=== PATIENT | male | born 1970 | race Caucasian/White ===

== ENCOUNTER 2017-02-25 18:44 | Emergency (ER) | payer OTHER ==
[~2017-02-25] VITALS: Ht 172.7 cm; Wt 105.0 kg
[~2017-02-25 18:44] MED LIST: CLX20 PO; MULT-662 PO; ONDA4TAB7 SL
[2017-02-25 18:49] VITALS: TEMP 37.2; Ht 172.7 cm; Wt 105.0 kg
[2017-02-25] MEDS ORDERED: MULT-220 PO (19:03)
[2017-02-25] MEDS ORDERED: CLX/20 PO (19:03)
[2017-02-25] MEDS ORDERED: BACITRACIN OINT 15 GM TUBE EXT ONE (19:15)
[2017-02-25] MEDS ORDERED: BCTROWC EXT (19:35)
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
[2017-02-25 20:07] VITALS: BP 148/81; PULSE 82; O2SAT 98
== END 2017-02-25 20:09 | disposition home or self-care (01) ==
LOC: C.EDB 18:45 → C.EDD 20:09
DX: T22.00XA Burn of unspecified degree of shoulder and upper limb, except wrist and hand, unspecified site, initial encounter (principal); T31.0 Burns involving less than 10% of body surface; X08.8XXA Exposure to other specified smoke, fire and flames, initial encounter; F41.8 Other specified anxiety disorders; Z79.899 Other long term (current) drug therapy; Z98.890 Other specified postprocedural states; Z88.0 Allergy status to penicillin

== ENCOUNTER 2017-06-02 19:17 | Emergency (ER) | payer SELFPAY ==
[~2017-06-02] VITALS: Ht 172.7 cm; Wt 102.3 kg
[~2017-06-02 19:17] MED LIST changes: +CLX/20 PO; -CLX20 PO; +MULT-220 PO; -MULT-662 PO; -ONDA4TAB7 SL
[2017-06-02 19:22] VITALS: TEMP 37.2; Ht 172.7 cm; Wt 102.3 kg
[2017-06-02] MEDS ORDERED: ONDANSETRON INJ 2 MG/ML 2 ML VIAL IV STA (19:59)
[2017-06-02] MEDS ORDERED: MoRPHine SULFATE 10 MG/ML CARP/VIAL IV STA (19:59)
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
[2017-06-02] MEDS ORDERED: HYDROmorphone INJ 1 MG/ML SYR IV STA (22:19)
[2017-06-02] MEDS ORDERED: OXYC1TAB3 PO (22:23)
[2017-06-02 22:34] VITALS: BP 121/75; PULSE 92; O2SAT 97
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
== END 2017-06-02 22:41 | disposition home or self-care (01) ==
LOC: C.EDB 19:18
DX: S70.01XA Contusion of right hip, initial encounter (principal); S70.11XA Contusion of right thigh, initial encounter; S20.211A Contusion of right front wall of thorax, initial encounter; V86.59XA Driver of other special all-terrain or other off-road motor vehicle injured in nontraffic accident, initial encounter; Z98.890 Other specified postprocedural states

== ENCOUNTER 2020-08-16 19:41 | Inpatient (IN) ==
[2020-08-16] MEDS ORDERED: ACETAMINOPHEN 325 MG TAB PO STA (20:35)
[2020-08-16] MEDS ORDERED: ACETAMINOPHEN 325 MG TAB ONE (20:37)
[2020-08-16 20:39] LABS: Basophils # (auto) 0.02 K/uL (0-0.2); Basophils % (auto) 0.2 %; Eosinophils # (auto) 0.01 K/uL (0-0.5); Eosinophils % (auto) 0.1 %; Hematocrit (blood only) 39.6 % (42-52); Hemoglobin 14.2 g/dL (14.0-18.0); Immature Granulocytes # (auto) 0.06 K/uL (0.00-0.02); Immature Granulocytes % (auto) 0.7 %; Lymphocytes # (auto) 0.88 K/uL (1.2-3.4); Lymphocytes % (auto) 10.9 %; Mean Corpuscular Hemoglobin 31.1 pg (25-34); Mean Corpuscular Hgb Conc 35.9 g/dL (32-36); Mean Corpuscular Volume 86.8 fL (80-100); Mean Platelet Volume 9.4 fL (7.4-10.4); Monocytes # (auto) 0.54 K/uL (0.11-0.59); Monocytes % (auto) 6.7 %; Neutrophils # (auto) 6.55 K/uL (1.4-6.5); Neutrophils % (auto) 81.4 %; Platelet Count 149 K/uL (130-400); RDW Coefficient of Variation 13.2 % (11.5-14.5); RDW Standard Deviation 42.1 fL (36.4-46.3); Red Blood Count 4.56 M/uL (4.7-6.1); White Blood Count 8.06 K/uL (4.8-10.8)
--- NOTE | 2020-08-16 20:53 | XRay Report ---
XR chest 1V portable CLINICAL HISTORY: Fever COMPARISON STUDY: 03/12/2019 FINDINGS: The heart is normal in size. There is mild mediastinal prominence. Mild adenopathy cannot b e excluded. There is mild elevation of interstitium. Diagnostic considerations include a mild pulmona ry vascular congestion versus interstitial inflammatory process. Conical and radiographic follow-up i s recommended. There are no large pleural effusions[ IMPRESSION: 1. Mild elevation of interstitium. Likely diagnostic considerations include mild pulmonary vascular c ongestion versus interstitial infectious/inflammatory process. Clinical and radiographic follow-up is recommended 2. Mild mediastinal prominence. Mild adenopathy cannot be excluded. ACT 112: Negative or not required by law. Electronically signed by: Harjit Morrell M.D. 08/16/2020 8:52 PM
[2020-08-16 20:59] LABS: Albumin Level 3.3 gm/dl (3.4-5.0); Calcium 8.6 mg/dl (8.5-10.1); Creatinine Clr Calc Pharmacy 89.8 ml/min; Est GFR (African American) 77.5; Est GFR (Non-African American) 66.9; Potassium 3.6 mmol/L (3.5-5.1)
[2020-08-16 21:02] LABS: Albumin Globulin Ratio 0.8 (0.9-2); Bilirubin,Total 0.9 mg/dl (0.2-1); Globulin 4.3 gm/dl (2.5-4.0); Total Protein 7.6 gm/dl (6.4-8.2)
[2020-08-16] MEDS ORDERED: ALBUT/IPRATROP 3MG/0.5MG NEB 3 ML VIAL NEB STA (21:45)
[2020-08-16] MEDS ORDERED: KETOROLAC 30 MG/ML VIAL IV STA (21:45)
[2020-08-16] MEDS ORDERED: SODIUM CHLORIDE 0.9% 1000ML 1,000 ML IV SCH ×2 (21:45→23:45)
--- NOTE | 2020-08-16 21:52 | Emergency Department Note ---
History of Present Illness General Chief complaint: Fever Stated complaint: fever of 106, dr ricky Time Seen by Provider: 08/16/20 21:27 History of Present Illness Maximum Pain Intensity: 9 This is a 50-year-old male presenting to the emergency department for evaluation of fever and flulike symptoms for the past week. 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 He states that he has had a fever as high as 106 F at home, and contacted his primary care physician, who referred him to the ER. The patient does feel chest tightness and difficulty breathing. He does not smoke and does not have a known history of cardiopulmonary disease. The patient did take Motrin greater than 12 hours ago, and Tylenol about 8 hours ago. He does take blood pressure medication and Celexa, but considers himself usually healthy. He rates his overall discomfort a 9/10. He is diaphoretic and feels quite unwell. Home Medications Medication Instructions Recorded Confirmed Type citalopram [Celexa] 20 mg PO QAM 03/12/19 08/16/20 History acetaminophen [Tylenol Extra 1,000 mg PO Q6H PRN 08/16/20 08/16/20 History Strength] ibuprofen 200 mg PO Q6H PRN 08/16/20 08/16/20 History losartan 50 mg PO QAM 08/16/20 08/16/20 History sulfamethoxazole-trimethoprim 1 tab PO Q12H 08/16/20 08/16/20 History [Bactrim DS] Allergies Allergy/AdvReac Type Severity Reaction Status Date / Time lisinopril Allergy Severe "nonstop" Unverified 08/16/20 21:23 coughing Penicillins Allergy Intermediate hives Verified 08/16/20 21:16 Past Med/Surg History Medical History (Updated 08/17/20 @ 22:51 by Jay Jay Varner PA-C) Hypertension Surgical History (Updated 08/16/20 @ 21:50 by Jay Jay Varner PA-C) No significant past surgical history Family History Other No significant family history Social History Smoking Status: Never smoker Second Hand Exposure: No; Do You Dip or Chew Tobacco: Yes; Hx Alcohol Use: No Hx Substance Use: No Preferred Language: Macanese Communication Ability: Effective Waste Treatment Operator Required: No Beliefs That Will Affect Care: None Current Living Situation: Family Other Information That Helps Us Care for You: No Feels Safe at Home: Yes Safety Concerns: Feels Safe At This Time Assistive Devices: None Review of Systems A total of 10 systems reviewed and were otherwise negative Physical Exam Vital Signs Vital Signs - 24 hr 08/16/20 23:00 08/16/20 23:01 08/16/20 23:09 Temperature 37.1 C Temperature Source Oral Pulse Rate 108 H 102 H Pulse Rate [Apical] 103 H Pulse Rate from SpO2 Sensor 101 H 103 H Respiratory Rate 19 23 20 Respiratory Effort / Characteristics Non-Labored Spontaneous Respiratory Depth Normal Blood Pressure 133/79 Blood Pressure [Left Arm] 133/79 Blood Pressure Mean 103 Blood Pressure Mean [Left Arm] 97 Pulse Oximetry 94 94 96 Oxygen Delivery Method Room Air Room Air Room Air 08/16/20 23:15 08/16/20 23:30 08/16/20 23:31 Temperature Temperature Source Pulse Rate 105 H 101 H Pulse Rate [Apical] 101 H Pulse Rate from SpO2 Sensor 103 H 102 H Respiratory Rate 18 15 14 Respiratory Effort / Characteristics Non-Labored Spontaneous Respiratory Depth Blood Pressure 133/78 Blood Pressure [Left Arm] Blood Pressure Mean 106 Blood Pressure Mean [Left Arm] Pulse Oximetry 99 94 94 Oxygen Delivery Method Room Air Room Air Room Air 08/17/20 00:00 08/17/20 00:01 08/17/20 00:19 Temperature Temperature Source Pulse Rate 102 H 99 H 84 Pulse Rate [Apical] Pulse Rate from SpO2 Sensor 102 H 100 H 84 Respiratory Rate 21 16 22 Respiratory Effort / Characteristics Respiratory Depth Blood Pressure 114/72 145/104 H Blood Pressure [Left Arm] Blood Pressure Mean 81 119 Blood Pressure Mean [Left Arm] Pulse Oximetry 93 94 98 Oxygen Delivery Method Room Air Room Air Room Air 08/17/20 00:30 08/17/20 00:31 08/17/20 00:50 Temperature Temperature Source Pulse Rate 101 H 115 H 81 Pulse Rate [Apical] Pulse Rate from SpO2 Sensor 101 H 101 H 81 Respiratory Rate 18 21 14 Respiratory Effort / Characteristics Respiratory Depth Blood Pressure 107/76 156/100 H Blood Pressure [Left Arm] Blood Pressure Mean 80 111 Blood Pressure Mean [Left Arm] Pulse Oximetry 97 97 95 Oxygen Delivery Method Room Air Room Air Room Air 08/17/20 01:00 08/17/20 01:01 08/17/20 01:30 Temperature Temperature Source Pulse Rate 91 H 83 100 H Pulse Rate [Apical] Pulse Rate from SpO2 Sensor 93 H 84 100 H Respiratory Rate 20 17 15 Respiratory Effort / Characteristics Respiratory Depth Blood Pressure 154/101 H 109/80 Blood Pressure [Left Arm] Blood Pressure Mean 105 82 Blood Pressure Mean [Left Arm] Pulse Oximetry 97 97 97 Oxygen Delivery Method Room Air Room Air Room Air 08/17/20 01:31 08/17/20 02:09 08/17/20 02:30 Temperature Temperature Source Pulse Rate 100 H 114 H 111 H Pulse Rate [Apical] Pulse Rate from SpO2 Sensor 100 H 115 H Respiratory Rate 21 24 24 Respiratory Effort / Characteristics Respiratory Depth Blood Pressure 154/84 H Blood Pressure [Left Arm] Blood Pressure Mean 98 Blood Pressure Mean [Left Arm] Pulse Oximetry 97 92 93 Oxygen Delivery Method Room Air Room Air Room Air VITALS: Vitals are noted on the nurse's note and reviewed by myself. Vital signs with Fever, tachycardia, and tachypnea GENERAL: Mildly ill-appearing white male who is seated in a well lit ER room answering questions appropriately HEAD: Normocephalic atraumatic. EARS: External ear normal. External auditory canals clear, tympanic membranes pearly [place]udson without erythema or effusion bilaterally. EYES: Pupils equal round and reactive to light and accommodation. Conjunctivae without injection, sclerae without icterus. Extraocular movements intact. NOSE: Patent, turbinates without inflammation or discharge. MOUTH: Mucous membranes moist. Tonsils are not enlarged. Pharynx without erythema, blood, or exudate. Uvula midline. Airway patent. NECK: Supple without nuchal rigidity. No lymphadenopathy. No thyromegaly. Cervical spine is nontender. No meningismus HEART: Regular rate and rhythm without murmurs gallops or rubs. LUNGS: Clear to auscultation bilaterally without wheezes, rales or rhonchi. No retractions or accessory muscle use. ABDOMEN: Positive normal bowel sounds x 4. Soft, nontender, without masses or organomegaly. No guarding or rebound tenderness. MUSCULOSKELETAL: No muscle atrophy, erythema, or edema noted. Full range of motion in all extremities. NEURO: Patient was alert and oriented to person place and time. CN II through XI I grossly intact. Course Administered Medications Citalopram Hydrobromide (Citalopram 20 Mg Tab) 20 mg PO QAM [facility] Stop: 09/16/20 08:59 Last Admin: 08/17/20 08:44 Dose: 20 mg Documented by: [id number] Enoxaparin Sodium (Enoxaparin Inj 40 Mg/0.4 Ml Syr) 40 mg SQ QAM [facility] Stop: 09/16/20 08:59 Last Admin: 08/17/20 08:44 Dose: 40 mg Documented by: [id number] Meropenem 2,000 mg/ Sodium (Chloride) 100 mls @ 200 mls/hr IV Q8H [facility]; Protocol Stop: 08/27/20 08:59 Last Infusion: 08/17/20 17:29 Dose: 0 mls/hr Documented by: [id number] Infusion: 08/17/20 17:17 Dose: 200 mls/hr Documented by: [id number] Infusion: 08/17/20 16:45 Dose: 0 mls/hr Documented by: [id number] Admin: 08/17/20 16:27 Dose: 200 mls/hr Documented by: [id number] Infusion: 08/17/20 11:13 Dose: 0 mls/hr Documented by: [id number] Admin: 08/17/20 10:27 Dose: 200 mls/hr Documented by: [id number] Potassium Chloride 40 meq/ (Sodium Chloride) 1,020 mls @ 75 mls/hr IV .[id number] ONE Stop: 08/17/20 23:20 Last Admin: 08/17/20 10:27 Dose: 75 mls/hr Documented by: [id number] Vancomycin HCl 1,250 mg/ (Sodium Chloride) 275 mls @ 200 mls/hr IV Q12H [facility] Stop: 08/27/20 17:59 Last Infusion: 08/17/20 19:04 Dose: 0 mls/hr Documented by: [id number] Admin: 08/17/20 17:41 Dose: 200 mls/hr Documented by: [id number] Insulin Aspart (Insulin Aspart 100 Units/Ml 3 Ml Pen) 0 units SC ACHS [facility] Stop: 09/16/20 08:29 Last Admin: 08/17/20 20:59 Dose: 11 units Documented by: [id number] Cosigned by: [id number] Admin: 08/17/20 16:51 Dose: 22 units Documented by: [id number] Cosigned by: [id number] Admin: 08/17/20 12:30 Dose: 24 units Documented by: [id number] Cosigned by: [id number] Admin: 08/17/20 08:43 Dose: 9 units Documented by: [id number] Cosigned by: [id number] Losartan Potassium (Losartan Potassium 50 Mg Tab) 50 mg PO QAM [facility] Stop: 09/16/20 08:59 Last Admin: 08/17/20 08:44 Dose: 50 mg Documented by: [id number] Discontinued Medications Acetaminophen (Acetaminophen 325 Mg Tab) 650 mg PO NOW STA Stop: 08/16/20 20:36 Last Admin: 08/16/20 20:41 Dose: 650 mg Documented by: [id number] Acetaminophen (Acetaminophen 325 Mg Tab) Confirm Administered Dose 650 mg .ROUTE .STK-MED ONE Stop: 08/16/20 20:38 Last Admin: 08/16/20 20:41 Dose: Not Given Documented by: [id number] Acetaminophen (Acetaminophen 325 Mg Tab) Confirm Administered Dose 650 mg .ROUTE .STK-MED ONE Stop: 08/17/20 03:47 Last Admin: 08/17/20 03:48 Dose: 650 mg Documented by: [id number] Albuterol (Albut/Ipratrop 3mg/0.5mg Neb 3 Ml Vial) 3 ml NEB NOW STA Stop: 08/16/20 21:46 Last Admin: 08/16/20 23:15 Dose: 3 ml Documented by: [id number] Clonidine HCl (Clonidine Hcl 0.1 Mg Tab) 0.1 mg PO NOW ONE Stop: 08/17/20 02:54 Last Admin: 08/17/20 03:25 Dose: 0.1 mg Documented by: [id number] Dexamethasone (Dexamethasone Sod Inj 10 Mg/Ml Vial) 10 mg IV NOW STA Stop: 08/17/20 02:55 Last Admin: 08/17/20 03:25 Dose: 10 mg Documented by: [id number] Sodium Chloride (Nss 1000ml) 1,000 mls @ 999 mls/hr IV .Q1H1M [facility] Stop: 08/16/20 22:45 Last Infusion: 08/16/20 22:13 Dose: 0 mls/hr Documented by: [id number] Admin: 08/16/20 21:10 Dose: 999 mls/hr Documented by: [id number] Sodium Chloride (Nss 1000ml) 1,000 mls @ 999 mls/hr IV .Q1H1M [facility] Stop: 08/17/20 00:45 Last Infusion: 08/17/20 01:47 Dose: 0 mls/hr Documented by: [id number] Admin: 08/16/20 23:49 Dose: 999 mls/hr Documented by: [id number] Lactated Ringer's (Lr) 1,000 mls @ 60 mls/hr IV .[id number] ONE Stop: 08/17/20 17:54 Last Admin: 08/17/20 08:31 Dose: Not Given Documented by: [id number] Lactated Ringer's (Lr) 1,000 mls @ 75 mls/hr IV .[id number] ONE Stop: 08/17/20 15:01 Last Admin: 08/17/20 03:30 Dose: Not Given Documented by: [id number] Vancomycin HCl 2,750 mg/ (Sodium Chloride) 555 mls @ 200 mls/hr IV NOW STA Stop: 08/17/20 05:27 Last Infusion: 08/17/20 07:06 Dose: 0 mls/hr Documented by: [id number] Admin: 08/17/20 04:03 Dose: 200 mls/hr Documented by: [id number] Dexamethasone 10 mg/ Syringe 2.5 mls @ 1 mls/min IV Q6H [facility] Stop: 09/16/20 09:59 Last Admin: 08/17/20 16:19 Dose: 1 mls/min Documented by: [id number] Admin: 08/17/20 10:27 Dose: 1 mls/min Documented by: [id number] Ceftriaxone Sodium (Rocephin) 2,000 mg in 70 mls @ 140 mls/hr IV NOW STA Stop: 08/17/20 03:10 Last Infusion: 08/17/20 04:04 Dose: 0 mls/hr Documented by: [id number] Admin: 08/17/20 03:32 Dose: 140 mls/hr Documented by: [id number] Lactated Ringer's (Lr) 1,000 mls @ 500 mls/hr IV .Q2H ONE Stop: 08/17/20 06:45 Last Infusion: 08/17/20 05:40 Dose: 0 mls/hr Documented by: [id number] Admin: 08/17/20 04:46 Dose: 500 mls/hr Documented by: [id number] Magnesium Sulfate/Dextrose (Magnesium Sulfate / D5w) 1 gm in 100 mls @ 50 mls/hr IV NOW STA Stop: 08/17/20 06:57 Last Infusion: 08/17/20 08:32 Dose: 0 mls/hr Documented by: [id number] Admin: 08/17/20 05:37 Dose: 50 mls/hr Documented by: [id number] Insulin Aspart (Insulin Aspart 100 Units/Ml 3 Ml Pen) 11 units SC NOW ONE; Protocol Stop: 08/17/20 14:16 Last Admin: 08/17/20 14:18 Dose: 11 units Documented by: [id number] Cosigned by: [id number] Insulin Glargine (Insulin Glargine Solostar 100 Units/Ml 3 Ml Pen) 45 units SC NOW STA Stop: 08/17/20 09:40 Last Admin: 08/17/20 10:28 Dose: 45 units Documented by: [id number] Cosigned by: [id number] Ioversol (Optiray 320 125ml) 125 ml IV ONCE ONE Stop: 08/16/20 22:55 Last Admin: 08/16/20 22:54 Dose: 101 ml Documented by: [id number] Ioversol (Optiray 320 125ml) 125 ml IV ONCE ONE Stop: 08/17/20 02:27 Last Admin: 08/17/20 02:27 Dose: 118 ml Documented by: [id number] Ketorolac Tromethamine (Ketorolac 30 Mg/Ml Vial) 30 mg IV NOW STA Stop: 08/16/20 21:46 Last Admin: 08/16/20 22:09 Dose: 30 mg Documented by: [id number] Ketorolac Tromethamine (Ketorolac Tromethamine 15 Mg/Ml Vial) 15 mg IV NOW STA Stop: 08/17/20 00:58 Last Admin: 08/17/20 02:37 Dose: Not Given Documented by: [id number] Ketorolac Tromethamine (Ketorolac Tromethamine 15 Mg/Ml Vial) 15 mg IV NOW STA Stop: 08/17/20 01:44 Last Admin: 08/17/20 03:09 Dose: 15 mg Documented by: [id number] Metoprolol Tartrate (Metoprolol Tartrate 1 Mg/Ml Vial) Confirm Administered Dose 5 mg IV .STK-MED ONE Stop: 08/17/20 04:45 Last Increment: 08/17/20 04:46 Dose: 2.5 mg Documented by: [id number] Oxycodone HCl (Oxycodone Hcl Ir 5 Mg Tab (Immediate Release)) 5 mg PO NOW STA Stop: 08/17/20 01:06 Last Admin: 08/17/20 01:45 Dose: 5 mg Documented by: [id number] Potassium Chloride (Potassium Chloride Crtab 20 Meq Tabcr) 40 meq PO NOW STA Stop: 08/17/20 04:49 Last Admin: 08/17/20 06:31 Dose: 40 meq Documented by: [id number] Medical Decision Making Differential Diagnosis Differential diagnosis: Etiologies such as viral syndrome, otitis, pharyngitis, pneumonia, influenza, meningitis, urinary tract infection, septic arthritis, soft tissue infectious process, intra-abdominal process, sepsis, bacteremia, as well as others were entertained. Laboratory Data Result diagrams: 08/16/20 20:20 08/17/20 14:13 Lab Results 08/16/20 08/16/20 08/16/20 Range/Units 20:20 20:20 20:20 WBC 8.06 (4.8-10.8) K/uL RBC 4.56 L (4.7-6.1) M/uL Hgb 14.2 (14.0-18.0) g/dL Hct 39.6 L (42-52) % MCV 86.8 (80-100) fL MCH 31.1 (25-34) pg MCHC 35.9 (32-36) g/dL RDW Std Deviation 42.1 (36.4-46.3) fL RDW Coeff of Tata 13.2 (11.5-14.5) % Plt Count 149 (130-400) K/uL MPV 9.4 (7.4-10.4) fL Immature Gran % (Auto) 0.7 % Neut % (Auto) 81.4 % Lymph % (Auto) 10.9 % [place] % (Auto) 6.7 % Eos % (Auto) 0.1 % Baso % (Auto) 0.2 % Neut # (Auto) 6.55 H (1.4-6.5) K/uL Lymph # (Auto) 0.88 L (1.2-3.4) K/uL [place] # (Auto) 0.54 (0.11-0.59) K/uL Eos # (Auto) 0.01 (0-0.5) K/uL Baso # (Auto) 0.02 (0-0.2) K/uL Immature Gran # (Auto) 0.06 H (0.00-0.02) K/uL ESR 35 H (0-14) mm/hr PT (9.0-12.0) Seconds INR (0.9-1.1) APTT (21.0-31.0) Seconds PTT Ratio Sodium 128 L (136-145) mmol/L Potassium 3.6 (3.5-5.1) mmol/L Chloride 94 L (98-107) mmol/L Carbon Dioxide 26 (21-32) mmol/L Anion Gap 8.0 (3-11) BUN 8 (7-18) mg/dl Creatinine 1.24 (0.6-1.4) mg/dl Est Cr Clr Drug Dosing 89.8 ml/min Est GFR ( Amer) 77.5 Est GFR (Non-Af Amer) 66.9 BUN/Creatinine Ratio 6.0 L (10-20) Glucose 243 H (70-99) mg/dl Estimat Average Glucose mg/dl Hemoglobin A1c (4.5-5.6) % POC Lactic Acid Butch (0.90-1.70) mmol/L Lactate (0.4-2.0) mmol/L Calcium 8.6 (8.5-10.1) mg/dl Magnesium (1.8-2.4) mg/dl Total Bilirubin 0.9 (0.2-1) mg/dl AST 43 H (15-37) U/L ALT 78 (12-78) U/L Alkaline Phosphatase 61 (45-117) U/L Troponin I (0-0.045) ng/ml C-Reactive Protein 11.40 H (0-0.29) mg/dl Total Protein 7.6 (6.4-8.2) gm/dl Albumin 3.3 L (3.4-5.0) gm/dl Globulin 4.3 H (2.5-4.0) gm/dl Albumin/Globulin Ratio 0.8 L (0.9-2) Procalcitonin (0-0.5) ng/ml Lyme Disease IgG Ab (Negative) Lyme Disease IgM Ab (Negative) COVID-19 Eval Order SARS-CoV-2 (PCR) (Negative) Influenza Type A (PCR) (Neg) Influenza Type B (PCR) (Neg) RSV (RT-PCR) (Neg) SARS-CoV-2, RNA, NAAT (NEGATIVE) 08/16/20 08/16/20 08/16/20 Range/Units 20:20 20:20 20:20 WBC (4.8-10.8) K/uL RBC (4.7-6.1) M/uL Hgb (14.0-18.0) g/dL Hct (42-52) % MCV (80-100) fL MCH (25-34) pg MCHC (32-36) g/dL RDW Std Deviation (36.4-46.3) fL RDW Coeff of Tata (11.5-14.5) % Plt Count (130-400) K/uL MPV (7.4-10.4) fL Immature Gran % (Auto) % Neut % (Auto) % Lymph % (Auto) % [place] % (Auto) % Eos % (Auto) % Baso % (Auto) % Neut # (Auto) (1.4-6.5) K/uL Lymph # (Auto) (1.2-3.4) K/uL [place] # (Auto) (0.11-0.59) K/uL Eos # (Auto) (0-0.5) K/uL Baso # (Auto) (0-0.2) K/uL Immature Gran # (Auto) (0.00-0.02) K/uL ESR (0-14) mm/hr PT 11.2 (9.0-12.0) Seconds INR 1.1 (0.9-1.1) APTT 31.3 H (21.0-31.0) Seconds PTT Ratio 1.1 Sodium (136-145) mmol/L Potassium (3.5-5.1) mmol/L Chloride (98-107) mmol/L Carbon Dioxide (21-32) mmol/L Anion Gap (3-11) BUN (7-18) mg/dl Creatinine (0.6-1.4) mg/dl Est Cr Clr Drug Dosing ml/min Est GFR ( Amer) Est GFR (Non-Af Amer) BUN/Creatinine Ratio (10-20) Glucose (70-99) mg/dl Estimat Average Glucose mg/dl Hemoglobin A1c (4.5-5.6) % POC Lactic Acid Butch (0.90-1.70) mmol/L Lactate (0.4-2.0) mmol/L Calcium (8.5-10.1) mg/dl Magnesium (1.8-2.4) mg/dl Total Bilirubin (0.2-1) mg/dl AST (15-37) U/L ALT (12-78) U/L Alkaline Phosphatase (45-117) U/L Troponin I (0-0.045) ng/ml C-Reactive Protein (0-0.29) mg/dl Total Protein (6.4-8.2) gm/dl Albumin (3.4-5.0) gm/dl Globulin (2.5-4.0) gm/dl Albumin/Globulin Ratio (0.9-2) Procalcitonin 0.58 H (0-0.5) ng/ml Lyme Disease IgG Ab Negative (Negative) Lyme Disease IgM Ab Negative (Negative) COVID-19 Eval Order SARS-CoV-2 (PCR) (Negative) Influenza Type A (PCR) (Neg) Influenza Type B (PCR) (Neg) RSV (RT-PCR) (Neg) SARS-CoV-2, RNA, NAAT (NEGATIVE) 08/16/20 08/16/20 08/16/20 Range/Units 20:20 20:59 22:16 WBC (4.8-10.8) K/uL RBC (4.7-6.1) M/uL Hgb (14.0-18.0) g/dL Hct (42-52) % MCV (80-100) fL MCH (25-34) pg MCHC (32-36) g/dL RDW Std Deviation (36.4-46.3) fL RDW Coeff of Tata (11.5-14.5) % Plt Count (130-400) K/uL MPV (7.4-10.4) fL Immature Gran % (Auto) % Neut % (Auto) % Lymph % (Auto) % [place] % (Auto) % Eos % (Auto) % Baso % (Auto) % Neut # (Auto) (1.4-6.5) K/uL Lymph # (Auto) (1.2-3.4) K/uL [place] # (Auto) (0.11-0.59) K/uL Eos # (Auto) (0-0.5) K/uL Baso # (Auto) (0-0.2) K/uL Immature Gran # (Auto) (0.00-0.02) K/uL ESR (0-14) mm/hr PT (9.0-12.0) Seconds INR (0.9-1.1) APTT (21.0-31.0) Seconds PTT Ratio Sodium (136-145) mmol/L Potassium (3.5-5.1) mmol/L Chloride (98-107) mmol/L Carbon Dioxide (21-32) mmol/L Anion Gap (3-11) BUN (7-18) mg/dl Creatinine (0.6-1.4) mg/dl Est Cr Clr Drug Dosing ml/min Est GFR ( Amer) Est GFR (Non-Af Amer) BUN/Creatinine Ratio (10-20) Glucose (70-99) mg/dl Estimat Average Glucose 186 mg/dl Hemoglobin A1c 8.1 H (4.5-5.6) % POC Lactic Acid Butch 2.07 H (0.90-1.70) mmol/L Lactate (0.4-2.0) mmol/L Calcium (8.5-10.1) mg/dl Magnesium (1.8-2.4) mg/dl Total Bilirubin (0.2-1) mg/dl AST (15-37) U/L ALT (12-78) U/L Alkaline Phosphatase (45-117) U/L Troponin I (0-0.045) ng/ml C-Reactive Protein (0-0.29) mg/dl Total Protein (6.4-8.2) gm/dl Albumin (3.4-5.0) gm/dl Globulin (2.5-4.0) gm/dl Albumin/Globulin Ratio (0.9-2) Procalcitonin (0-0.5) ng/ml Lyme Disease IgG Ab (Negative) Lyme Disease IgM Ab (Negative) [facility] SARS-[facility]-2 (PCR) (Negative) Influenza Type A (PCR) (Neg) Influenza Type B (PCR) (Neg) RSV (RT-PCR) (Neg) SARS-CoV-2, RNA, NAAT (NEGATIVE) 08/16/20 08/16/20 08/16/20 Range/Units 22:16 22:25 23:50 WBC (4.8-10.8) K/uL RBC (4.7-6.1) M/uL Hgb (14.0-18.0) g/dL Hct (42-52) % MCV (80-100) fL MCH (25-34) pg MCHC (32-36) g/dL RDW Std Deviation (36.4-46.3) fL RDW Coeff of Tata (11.5-14.5) % Plt Count (130-400) K/uL MPV (7.4-10.4) fL Immature Gran % (Auto) % Neut % (Auto) % Lymph % (Auto) % [place] % (Auto) % Eos % (Auto) % Baso % (Auto) % Neut # (Auto) (1.4-6.5) K/uL Lymph # (Auto) (1.2-3.4) K/uL [place] # (Auto) (0.11-0.59) K/uL Eos # (Auto) (0-0.5) K/uL Baso # (Auto) (0-0.2) K/uL Immature Gran # (Auto) (0.00-0.02) K/uL ESR (0-14) mm/hr PT (9.0-12.0) Seconds INR (0.9-1.1) APTT (21.0-31.0) Seconds PTT Ratio Sodium (136-145) mmol/L Potassium (3.5-5.1) mmol/L Chloride (98-107) mmol/L Carbon Dioxide (21-32) mmol/L Anion Gap (3-11) BUN (7-18) mg/dl Creatinine (0.6-1.4) mg/dl Est Cr Clr Drug Dosing ml/min Est GFR ( Amer) Est GFR (Non-Af Amer) BUN/Creatinine Ratio (10-20) Glucose (70-99) mg/dl Estimat Average Glucose mg/dl Hemoglobin A1c (4.5-5.6) % POC Lactic Acid Butch (0.90-1.70) mmol/L Lactate (0.4-2.0) mmol/L Calcium (8.5-10.1) mg/dl Magnesium (1.8-2.4) mg/dl Total Bilirubin (0.2-1) mg/dl AST (15-37) U/L ALT (12-78) U/L Alkaline Phosphatase (45-117) U/L Troponin I 0.063 H* (0-0.045) ng/ml C-Reactive Protein (0-0.29) mg/dl Total Protein (6.4-8.2) gm/dl Albumin (3.4-5.0) gm/dl Globulin (2.5-4.0) gm/dl Albumin/Globulin Ratio (0.9-2) Procalcitonin (0-0.5) ng/ml Lyme Disease IgG Ab (Negative) Lyme Disease IgM Ab (Negative) COVID-[address] [facility]Rsv at [facility] SARS-CoV-2 (PCR) (Negative) Influenza Type A (PCR) (Neg) Influenza Type B (PCR) (Neg) RSV (RT-PCR) (Neg) SARS-CoV-2, RNA, NAAT NEGATIVE (NEGATIVE) 08/16/20 08/17/20 08/17/20 Range/Units 23:50 01:04 01:04 WBC (4.8-10.8) K/uL RBC (4.7-6.1) M/uL Hgb (14.0-18.0) g/dL Hct (42-52) % MCV (80-100) fL MCH (25-34) pg MCHC (32-36) g/dL RDW Std Deviation (36.4-46.3) fL RDW Coeff of Tata (11.5-14.5) % Plt Count (130-400) K/uL MPV (7.4-10.4) fL Immature Gran % (Auto) % Neut % (Auto) % Lymph % (Auto) % [place] % (Auto) % Eos % (Auto) % Baso % (Auto) % Neut # (Auto) (1.4-6.5) K/uL Lymph # (Auto) (1.2-3.4) K/uL [place] # (Auto) (0.11-0.59) K/uL Eos # (Auto) (0-0.5) K/uL Baso # (Auto) (0-0.2) K/uL Immature Gran # (Auto) (0.00-0.02) K/uL ESR (0-14) mm/hr PT (9.0-12.0) Seconds INR (0.9-1.1) APTT (21.0-31.0) Seconds PTT Ratio Sodium 132 L (136-145) mmol/L Potassium (3.5-5.1) mmol/L Chloride (98-107) mmol/L Carbon Dioxide (21-32) mmol/L Anion Gap (3-11) BUN (7-18) mg/dl Creatinine (0.6-1.4) mg/dl Est Cr Clr Drug Dosing ml/min Est GFR ( Amer) Est GFR (Non-Af Amer) BUN/Creatinine Ratio (10-20) Glucose (70-99) mg/dl Estimat Average Glucose mg/dl Hemoglobin A1c (4.5-5.6) % POC Lactic Acid Butch (0.90-1.70) mmol/L Lactate 1.5 (0.4-2.0) mmol/L Calcium (8.5-10.1) mg/dl Magnesium 1.8 (1.8-2.4) mg/dl Total Bilirubin (0.2-1) mg/dl AST (15-37) U/L ALT (12-78) U/L Alkaline Phosphatase (45-117) U/L Troponin I 0.063 H* (0-0.045) ng/ml C-Reactive Protein (0-0.29) mg/dl Total Protein (6.4-8.2) gm/dl Albumin (3.4-5.0) gm/dl Globulin (2.5-4.0) gm/dl Albumin/Globulin Ratio (0.9-2) Procalcitonin (0-0.5) ng/ml Lyme Disease IgG Ab (Negative) Lyme Disease IgM Ab (Negative) COVID-19 Eval Order SARS-CoV-2 (PCR) NEGATIVE (Negative) Influenza Type A (PCR) Negative (Neg) Influenza Type B (PCR) Negative (Neg) RSV (RT-PCR) Negative (Neg) SARS-CoV-2, RNA, NAAT (NEGATIVE) Imaging Data Radiologist's Impression: CHEST CTA for PULMONARY ARTERIES CT DOSE: 579.16 mGycm HISTORY: Shortness of breath. TECHNIQUE: Multiaxial CT images of the chest were performed following the i ntravenous administration of contrast to evaluate the pulmonary arteries. Maximal intensity projection images were also obtained. A dose lowering technique was utilized adhering to the principles of ALARA. COMPARISON STUDY: None. FINDINGS: Limited views of the upper abdomen demonstrate hepatic steatosis and a normal spleen. The visualized adrenal glands are unremarkable. Normal esophagus. There is mediastinal and bilateral hilar lymphadenopathy. The heart is normal in size. Dominant right hilar lymph node measures 15 mm. An AP window lymph node measures 1.8 x 1.6 cm. Normal caliber thoracic aorta with no evidence for dissection. No filling defects within the pulmonary arteries to suggest pulmonary embolus. No fractures within the visualized osseous structures. No pneumothorax. The central airways are patent. No focal lung consolidations to suggest pneumonia. IMPRESSION: 1. No evidence for pulmonary embolus. 2. Mediastinal and bilateral hilar lymphadenopathy. This is nonspecific and could be due to inflammatory, infectious, or neoplastic process. [address] follow-up recommended to ensure resolution. 3. No focal lung consolidations to suggest pneumonia. ECG Data Attestation: I personally reviewed and interpreted this ECG as follows: Indication: + SOB/dyspnea Additional Comments: Sinus tachycardia with Premature atrial complexes @132bpm No acute ST elevation Otherwise normal ECG When compared with ECG of 12-MAR-2019 20:43, Premature atrial complexes are now Present MDM Narrative Physical exam and history were performed. Nursing notes, EMR, and Medication List were personally reviewed. Patient appears to have multiple symptoms bring him to the ER tonight. On examination he does appear ill but not distinctly toxic. IV access was established and labs were obtained. Blood cultures were gathered. The patient was hydrated with a total of 3 L normal saline and given IV Toradol and a DuoNeb for comfort. CT scan of the chest was performed. An order was placed for continuous cardiac monitoring. The monitor shows a rate of 93 with normal sinus rhythm. The patient's blood work is as above and was reviewed. He does not have a significantly elevated white blood cell count or gross anemia. INR is 1.1. Glucose is 243. Lactic acid is slightly elevated at 2.07, and repeat was performed after hydration and was 1.5. Blood cultures are pending. Transaminases are not diagnostic. CRP is notably elevated at 11.4. Additionally he does have a slightly elevated troponin of 0.063. CT scan of the chest does not reveal acute PE or obvious pneumonia. The patient does feel improved on reevaluation. Covid testing x2 was negative. Overall the patient does not appear well for discharge home. He does have an elevated troponin and flulike symptoms. He does have an initially elevated lactate, but I am unsure of his source. The case was discussed with the on-call [facility] team, who will initiate antibiotics. Please see their dictation for further patient course, plan, and disposition. The chart was completed utilizing [employer] Voice Recognition Software. Grammatical errors, random word insertions, pronoun errors, and incomplete s entences are an occasional consequence of this system due to software limitations, ambient noise, and hardware issues. Any formal questions or concerns about the content, text, or information contained within the body of this dictation should be directly addressed to the provider for clarification. . Impression & Plan Sepsis, Fever, Elevated glucose, Elevated troponin Discharge Plan Visit Data Chief Complaint: Fever Stated Complaint: fever of 106, dr ref ED Provider: Brandy Bruno ED Midlevel Provider: Jay Jay Varner Discharge Problem: Sepsis, Fever, Elevated glucose, Elevated troponin Patient Disposition: Admitted As Inpatient Discharge Instructions Interventions: ED Discharge Assessment Last Done: 08/17/20 07:55
[2020-08-16] MEDS ORDERED: OPTIRAY 320 125ml IV ONE (22:54)
[2020-08-16 23:45] LABS: C Reactive Protein 11.4 mg/dl (0-0.29)
[2020-08-16 23:47] LABS: INR 1.1 (0.9-1.1); Partial Thromboplastin Ratio 1.1; Partial Thromboplastin Time 31.3 Seconds (21.0-31.0); Prothrombin Time 11.2 Seconds (9.0-12.0)
[2020-08-17 00:11] LABS: Lyme Ab IgG w/WB Rflx Negative (Negative); Lyme Ab IgM w/WB Rflx Negative (Negative)
[2020-08-17] MEDS ORDERED: KETOROLAC TROMETHAMINE 15 MG/ML VIAL IV STA ×2 (00:57→01:43)
[2020-08-17] MEDS ORDERED: oxyCODONE HCL IR 5 MG TAB (IMMEDIATE RELEASE) PO STA (01:05)
[2020-08-17 01:11] LABS: Influenza A virus by PCR Negative (Neg); Influenza B virus by PCR Negative (Neg); RSV by PCR Negative (Neg); SARS CoV2 RNA(COVID-19) InHosp NEGATIVE (Negative)
[2020-08-17] MEDS ORDERED: LACTATED RINGER'S 1,000 ML IV ONE ×3 (01:15→04:46)
[2020-08-17 01:41] LABS: Troponin I 0.063 ng/ml (0-0.045)
--- NOTE | 2020-08-17 01:44 | History & Physical Report ---
Date of Service August 17, 2020 Assessment & Plan (1) Sepsis: SIRS plus lactic acid elevation Possible bacterial meningitis ? Secondary to sinusitis, otitis media History chronic sinusitis as per records Chest pain, troponin elevation secondary to tachycardia from sepsis hypertension, stable mood disorder, at baseline hx vertebral artery dissection status post Coumadin Hyperglycemia, possible DM Medical telemetry Fluoroscopy guided diagnostic LP in a.m. if ER provider unable to perform diagnostic LP at patient bedside Cultures, Vancomycin, Ceftriaxone for possible bacterial meningitis (Decadron until pneumococcal meningitis ruled out, standard droplet precautions until meningococcal meningitis ruled out) IVF, follow lactic acid Check hemoglobin A1c DVT prophylaxis per Lovenox subcu Full code Text document was generated using [employer] voice recognition software. It may contain grammatical or spelling errors. Kindly contact undersigned for clarification of any documentation item in question. History of Present Illness Chief Complaint: Headache Primary Care Provider: Tu Morrissey MD History obtained from patient and records. Medical history significant for hypertension, chronic sinusitis as per records, mood disorder, vertebral artery dissection status post Coumadin. 1 week history of sinus congestion with drainage cough productive of junky sputum, achy headache symptoms with yellow bilateral ear discharge right greater than the left. Fever and chills noted at home. No known recent COVID-19 contac ts. Nonpleuritic chest tightness with some shortness of breath the last 2 days. Some neck pain on flexion. 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 Allergies Allergy/AdvReac Type Severity Reaction Status Date / Time lisinopril Allergy Severe "nonstop" Unverified 08/16/20 21:23 coughing Penicillins Allergy Intermediate hives Verified 08/16/20 21:16 Home Medications Medication Instructions Recorded Confirmed Type citalopram [Celexa] 20 mg PO QAM 03/12/19 08/16/20 History acetaminophen [Tylenol Extra 1,000 mg PO Q6H PRN 08/16/20 08/16/20 History Strength] ibuprofen 200 mg PO Q6H PRN 08/16/20 08/16/20 History losartan 50 mg PO QAM 08/16/20 08/16/20 History sulfamethoxazole-trimethoprim 1 tab PO Q12H 08/16/20 08/16/20 History [Bactrim DS] Past Med/Surg History Medical History (Updated 08/17/20 @ 10:56 by Nader Hernadez MD) Hypertension Surgical History (Updated 08/16/20 @ 21:50 by Jay Jay Varner PA-C) No significant past surgical history Family History Other No significant family history Social History Smoking Status: Never smoker Second Hand Exposure: No; Do You Dip or Chew Tobacco: Yes; Hx Alcohol Use: No Hx Substance Use: No Preferred Language: Yemeni Communication Ability: Effective Photo Tech Required: No Beliefs That Will Affect Care: None Current Living Situation: Family Other Information That Helps Us Care for You: No Feels Safe at Home: Yes Safety Concerns: Feels Safe At This Time Assistive Devices: None Review of Systems Review of Systems: As per HPI, all 10 systems reviewed, all other ROS negative Physical Exam Physical Exam: GENERAL: uncomfortable, no respiratory distress, obese SKIN: Normal color, warm HEENT: Alopecia, pink palpebral conjunctivae, no ptosis, dry buccal mucosa AD : Perforated TM with yellow drainage : Red TM, no obvious perforation NECK : Supple, short neck, no tenderness CHEST : CTA, no tenderness HEART : Tachycardia, no obvious murmurs ABDOMEN: Some distention, nontender EXTREMITIES : No LE swelling/tenderness, no other conspicuous deformities noted NEUROLOGIC : Coherent, no facial asymmetry, no other gross focality Results & Data Results & Data ([facility]) Vital Signs (Past 12 Hours) Vital Signs Temp Pulse Pulse Resp BP BP Pulse Ox 08/17/20 01:31 100 H 21 97 08/17/20 01:30 100 H 15 109/80 97 08/17/20 01:01 83 17 97 08/17/20 01:00 91 H 20 154/101 H 97 08/17/20 00:50 81 14 156/100 H 95 08/17/20 00:31 115 H 21 97 08/17/20 00:30 101 H 18 107/76 97 08/17/20 00:19 84 22 145/104 H 98 08/17/20 00:01 99 H 16 94 08/17/20 00:00 102 H 21 114/72 93 08/16/20 23:31 101 H 14 94 08/16/20 23:30 105 H 15 133/78 94 08/16/20 23:15 101 H 18 99 08/16/20 23:09 37.1 C 103 H 20 133/79 96 08/16/20 23:01 102 H 23 94 08/16/20 23:00 108 H 19 133/79 94 08/16/20 22:31 108 H 14 94 08/16/20 22:30 107 H 17 129/77 94 08/16/20 22:13 37.5 C 112 H 21 131/81 94 08/16/20 22:01 115 H 18 95 08/16/20 21:31 118 H 26 H 93 08/16/20 21:30 118 H 24 138/78 93 08/16/20 21:11 122 H 34 H 94 08/16/20 21:00 124 H 26 H 147/87 H 95 08/16/20 20:28 130 H 25 H 94 08/16/20 19:47 38.7 C H 135 H 20 121/72 95 Laboratory Results Laboratory Results WBC 8.06 K/uL (4.8-10.8) 08/16/20 20:20 RBC 4.56 M/uL (4.7-6.1) L 08/16/20 20:20 Hgb 14.2 g/dL (14.0-18.0) 08/16/20 20:20 Hct 39.6 % (42-52) L 08/16/20 20:20 MCV 86.8 fL (80-100) 08/16/20 20:20 MCH 31.1 pg (25-34) 08/16/20 20:20 MCHC 35.9 g/dL (32-36) 08/16/20 20:20 RDW Std Deviation 42.1 fL (36.4-46.3) 08/16/20 20:20 RDW Coeff of Tata 13.2 % (11.5-14.5) 08/16/20 20:20 Plt Count 149 K/uL (130-400) 08/16/20 20:20 MPV 9.4 fL (7.4-10.4) 08/16/20 20:20 Immature Gran % (Auto) 0.7 % 08/16/20 20:20 Neut % (Auto) 81.4 % 08/16/20 20:20 Lymph % (Auto) 10.9 % 08/16/20 20:20 Sharp % (Auto) 6.7 % 08/16/20 20:20 Eos % (Auto) 0.1 % 08/16/20 20:20 Baso % (Auto) 0.2 % 08/16/20 20:20 Neut # (Auto) 6.55 K/uL (1.4-6.5) H 08/16/20 20:20 Lymph # (Auto) 0.88 K/uL (1.2-3.4) L 08/16/20 20:20 Sharp # (Auto) 0.54 K/uL (0.11-0.59) 08/16/20 20:20 Eos # (Auto) 0.01 K/uL (0-0.5) 08/16/20 20:20 Baso # (Auto) 0.02 K/uL (0-0.2) 08/16/20 20:20 Immature Gran # (Auto) 0.06 K/uL (0.00-0.02) H 08/16/20 20:20 ESR 35 mm/hr (0-14) H 08/16/20 20:20 PT 11.2 Seconds (9.0-12.0) 08/16/20 20:20 INR 1.1 (0.9-1.1) 08/16/20 20:20 APTT 31.3 Seconds (21.0-31.0) H 08/16/20 20:20 PTT Ratio 1.1 08/16/20 20:20 Sodium 132 mmol/L (136-145) L 08/17/20 01: Potassium 3.6 mmol/L (3.5-5.1) 08/16/20 20:20 Chloride 94 mmol/L (98-107) L 08/16/20 20:20 Carbon Dioxide 26 mmol/L (21-32) 08/16/20 20:20 Anion Gap 8.0 (3-11) 08/16/20 20:20 BUN 8 mg/dl (7-18) 08/16/20 20:20 Creatinine 1.24 mg/dl (0.6-1.4) 08/16/20 20:20 Est Cr Clr Drug Dosing 89.8 ml/min 08/16/20 20:20 Est GFR ( Amer) 77.5 08/16/20 20:20 Est GFR (Non-Af Amer) 66.9 08/16/20 20:20 BUN/Creatinine Ratio 6.0 (10-20) L 08/16/20 20:20 Glucose 243 mg/dl (70-99) H 08/16/20 20:20 POC Lactic Acid Butch 2.07 mmol/L (0.90-1.70) H 08/16/20 20:59 Lactate 1.5 mmol/L (0.4-2.0) 08/17/20 01:04 Calcium 8.6 mg/dl (8.5-10.1) 08/16/20 20:20 Total Bilirubin 0.9 mg/dl (0.2-1) 08/16/20 20:20 AST 43 U/L (15-37) H 08/16/20 20:20 ALT 78 U/L (12-78) 08/16/20 20:20 Alkaline Phosphatase 61 U/L (45-117) 08/16/20 20:20 Troponin I 0.063 ng/ml (0-0.045) H* 08/17/20 01:04 C-Reactive Protein 11.40 mg/dl (0-0.29) H 08/16/20 20:20 Total Protein 7.6 gm/dl (6.4-8.2) 08/16/20 20:20 Albumin 3.3 gm/dl (3.4-5.0) L 08/16/20 20:20 Globulin 4.3 gm/dl (2.5-4.0) H 08/16/20 20:20 Albumin/Globulin Ratio 0.8 (0.9-2) L 08/16/20 20:20 Procalcitonin 0.58 ng/ml (0-0.5) H 08/16/20 20:20 Lyme Disease IgG Ab Negative (Negative) 08/16/20 20:20 Lyme Disease IgM Ab Negative (Negative) 08/16/20 20:20 COVID-19 Eval [address] [facility]FluRsv at [facility] 08/16/20 23:50 SARS-CoV-2 (PCR) NEGATIVE (Negative) 08/16/20 23:50 Influenza Type A (PCR) Negative (Neg) 08/16/20 23:50 Influenza Type B (PCR) Negative (Neg) 08/16/20 23:50 RSV (RT-PCR) Negative (Neg) 08/16/20 23:50 SARS-CoV-2, RNA, NAAT NEGATIVE (NEGATIVE) 08/16/20 22:[address] head: No acute intracranial abnormality. CTA head read: Carotid and vertebral arteries of the neck are patent without occlusion or hemodynamically significant stenosis. CT chest initial read: No evidence of acute pleural embolism. Thoracic aorta. Atelectasis within superior segment right lower lobe as well as posterior aspects of right and left lower lobes. No consolidation. Prominent mediastinal and bilateral hilar lymph nodes which are pathologically enlarged by size criteria. EKG as per my interpretation rate 100, NSR, normal axis, T wave flattening septal leads
[2020-08-17] MEDS ORDERED: OPTIRAY 320 125ml IV ONE (02:26)
[2020-08-17] MEDS ORDERED: cefTRIAXone SODIUM 2,000 MG/70 ML BAG IV STA (02:41)
[2020-08-17] MEDS ORDERED: VANCOMYCIN CONSULT ACTIVE PRN (02:41)
[2020-08-17] MEDS ORDERED: VANCOMYCIN HCL 2,750 MG in SODIUM CHLORIDE 0.9% 500 ML IV STA (02:41)
[2020-08-17] MEDS ORDERED: cloNIDine HCL 0.1 MG TAB PO ONE (02:53)
[2020-08-17] MEDS ORDERED: DEXAMETHASONE SOD INJ 10 MG/ML VIAL IV STA (02:54)
[2020-08-17] MEDS ORDERED: ACETAMINOPHEN 325 MG TAB ONE (03:46)
[2020-08-17] MEDS ORDERED: METOPROLOL TARTRATE 1 MG/ML VIAL IV ONE (04:44)
[2020-08-17] MEDS ORDERED: POTASSIUM CHLORIDE CRTAB 20 MEQ TABCR PO STA (04:48)
[2020-08-17] MEDS ORDERED: MAGNESIUM SULFATE / D5W 1 GM/100 ML BAG IV STA (04:58)
[2020-08-17 05:11] LABS: Magnesium 1.8 mg/dl (1.8-2.4)
[2020-08-17 05:56] LABS: Estimated Average Glucose 186 mg/dl; Hemoglobin A1C 8.1 % (4.5-5.6)
--- NOTE | 2020-08-17 07:35 | CT Scan Report ---
HEAD CT NONCONTRAST CT DOSE: 1221.74 mGy.cm HISTORY: Headache. TECHNIQUE: Multiaxial CT images of the head were performed without the use of intravenous contrast. A utomated exposure control was utilized for this study. A dose lowering technique was utilized adheri ng to the principles of ALARA. Comparison: Head CT 06/10/2011. Findings: The paranasal sinuses and mastoid air cells are clear. The calvarium and skull base are int act. The ventricles and sulci are within normal limits. There is no mass, hematoma, midline shift, or acute infarct. Impression: No acute intracranial abnormality. ACT 112: Negative or not required by law. Electronically signed by: Elías Carson M.D. 08/17/2020 7:34 AM
--- NOTE | 2020-08-17 07:42 | CT Scan Report ---
CT ANGIOGRAM OF THE NECK CLINICAL HISTORY: Neck pain. Reported history of vertebral artery dissection. COMPARISON STUDY: No priors. TECHNIQUE: Following the IV administration of 118 of Optiray 320, CT angiogram of the neck was perfor med from the aortic arch to the skull base. Images are reviewed in the axial, sagittal, and coronal p lanes. 3-D MIPS images are created and assessed. IV contrast was administered without complication. A ll measurements were calculated based on NASCET criteria. A dose lowering technique was utilized adh ering to the principles of ALARA. FINDINGS: Thoracic aorta: Visualized portions of the thoracic aorta are normal in caliber. The aortic arch demo nstrates standard 3-vessel anatomy. Right carotid arterial system: The right common carotid artery is widely patent, as are the right int ernal and external carotid arteries. Left carotid arterial system: The left common carotid artery is widely patent, as are the left record label intern al and external carotid arteries. Vertebral arteries: The vertebral arteries are widely patent bilaterally and codominant. No dissectio n is identified. Subclavian arteries: Widely patent bilaterally. Intracranial vasculature: The visualized intracranial vessels at the skull base are patent. Jugular veins: Widely patent bilaterally. Brain parenchyma: The visualized brain parenchyma the skull base is within normal limits. Upper chest: There are enlarged upper mediastinal lymph nodes. Paratracheal nodes measure up to 12 mm in short axis. Soft tissues: The visualized pharyngeal soft tissues are normal in appearance noting angiographic pha se technique. The oropharyngeal airway appears widely patent. The salivary and thyroid glands are nor mal in appearance. No cervical lymphadenopathy is seen. Skeletal structures: The visualized calvarium at the skull base appears intact. The imaged cervical s pine is maintained noting mild multilevel spondylosis. No lytic or blastic lesion is seen. Sinuses and mastoids: The visualized paranasal sinuses are clear. The mastoid air cells are well pneu matized. IMPRESSION: 1. Unremarkable CT angiogram of the neck. 2. Mildly enlarged lymph nodes are noted in the superior mediastinum. ACT 112: Negative or not required by law. Electronically signed by: Grabiel Hathaway M.D. 08/17/2020 7:40 AM
[2020-08-17] MEDS ORDERED: ACETAMINOPHEN 325 MG TAB PO PRN (08:08)
[2020-08-17] MEDS ORDERED: DEXTROSE 50% 50 ML SYRINGE IV PRN (08:08)
[2020-08-17] MEDS ORDERED: KETOROLAC TROMETHAMINE 15 MG/ML VIAL IV PRN (08:08)
[2020-08-17] MEDS ORDERED: GLUCAGON FOR INJ 1 MG VIAL SQ PRN (08:08)
[2020-08-17] MEDS ORDERED: IBUPROFEN 200 MG TAB PO PRN (08:08)
[2020-08-17] MEDS ORDERED: GLUCOSE 40% GEL 15 GM TUBE PO PRN (08:08)
[2020-08-17] MEDS ORDERED: CARBOHYDRATES FOR HYPOGLYCEMIA PO PRN (08:08)
[2020-08-17] MEDS ORDERED: GLUCOSE 10 TABS/TUBE PO PRN (08:08)
--- NOTE | 2020-08-17 08:28 | CT Scan Report ---
CHEST CTA for PULMONARY ARTERIES CT DOSE: 579.16 mGycm HISTORY: Shortness of breath. TECHNIQUE: Multiaxial CT images of the chest were performed following the intravenous administration of contrast to evaluate the pulmonary arteries. Maximal intensity projection images were also obtaine d. A dose lowering technique was utilized adhering to the principles of ALARA. COMPARISON STUDY: None. FINDINGS: Limited views of the upper abdomen demonstrate hepatic steatosis and a normal spleen. The v isualized adrenal glands are unremarkable. Normal esophagus. There is mediastinal and bilateral hilar lymphadenopathy. The heart is normal in size. Dominant right hilar lymph node measures 15 mm. An AP window lymph node measures 1.8 x 1.6 cm. Normal caliber thoracic aorta with no evidence for dissectio n. No filling defects within the pulmonary arteries to suggest pulmonary embolus. No fractures within the visualized osseous structures. No pneumothorax. The central airways are patent. No focal lung co nsolidations to suggest pneumonia. IMPRESSION: 1. No evidence for pulmonary embolus. 2. Mediastinal and bilateral hilar lymphadenopathy. This is nonspecific and could be due to inflammat ory, infectious, or neoplastic process. [address] follow-up recommended to ensure resolution. 3. No focal lung consolidations to suggest pneumonia. ACT 112: Positive. There are findings on this exam that require communication between the performing entity and the patient following Patient Test Result Information Act ([place] Act 112) guidelines. Electronically signed by: Elías Carson M.D. 08/17/2020 8:27 AM
[2020-08-17] MEDS: INSULIN ASPART 100 UNITS/ML 3 ML PEN SC SCH ×4 (08:43→20:59)
[2020-08-17] MEDS: CITALOPRAM 20 MG TAB PO SCH (08:44)
[2020-08-17] MEDS: LOSARTAN POTASSIUM 50 MG TAB PO SCH (08:44)
[2020-08-17] MEDS: ENOXAPARIN INJ 40 MG/0.4 ML SYR SQ SCH (08:44)
[2020-08-17] MEDS ORDERED: INSULIN GLARGINE SOLOSTAR 100 UNITS/ML 3 ML PEN SC STA ×2 (08:54→09:39)
[2020-08-17] MEDS ORDERED: PHARMACY GLYCEMIC MGMT CONSULT PRN (09:34)
[2020-08-17] MEDS ORDERED: POTASSIUM CHLORIDE 40 MEQ in SODIUM CHLORIDE 0.9% 1000ML 1,000 ML IV ONE (09:45)
--- NOTE | 2020-08-17 09:49 | Fluoroscopy Report ---
FLUOROSCOPIC GUIDED LUMBAR PUNCTURE CLINICAL HISTORY: Sepsis. PROCEDURE: The risks, benefits, and alternatives to the procedure is discussed with the patient who v oiced understanding. Written informed consent was obtained. The patient was placed prone on the fluor oscopy table. The lower back was prepped and draped in the usual sterile fashion. 1% lidocaine was us ed for local anesthesia. A 20-gauge spinal needle was inserted into the L4-L5 interlaminar space, and approximately 10 cc of clear colorless cerebrospinal fluid was removed. 3 spot images were saved. Th e patient tolerated the procedure well. There were no immediate complications. The patient was then r eturned to the medical floor for further observation. Fluoroscopy time: 0.3 minutes IMPRESSION: Fluoroscopic guided lumbar puncture with removal of approximately 10 cc of cerebrospinal fluid. There were no immediate complications. ACT 112: Negative or not required by law. Electronically signed by: Grabiel Hathaway M.D. 08/17/2020 9:47 AM
[2020-08-17] MEDS: MEROPENEM 2,000 MG in 0.9 % SODIUM CHLORIDE 58 ML IV SCH ×3 (10:27→23:58)
[2020-08-17] MEDS: dexAMETHasone 10 MG in SYRINGE 0 ML IV SCH ×2 (10:27→16:19)
--- NOTE | 2020-08-17 11:09 | Pharmacy Report ---
Pharmacy Abx Dose Short Note - Date of Service August 17, 2020 - Assessment & Plan Assessment * 50 year old M receiving VANCOMYCIN + MEROPENEM for treatment of possible bacterial meningitis. He is also receiving Dexamethasone 10mg IV Q 6 hrs. * + h/o penicillin allergy (hives), age > 50 yrs --> meropenem used for both listeria coverage and typical bacterial meningitis pathogens (strep pn, n meningitidis) * Day #1 of antimicrobial therapy * No CSF obtained for cell count, Biofire or culture. Blood cx's have been obtained. * Patient had been taking SMX-TMP prior to admission per med rec * No leukocytosis noted on initial labs, procal elevated (0.58) and temp present in ER (Tmax 38.7 since admit) * Unknown baseline renal fxn - I have ordered a repeat SCr as we do not have a repeat today Plan Vancomycin * Patient is not a candidate for AUC dosing due to obesity * Load: 2750mg (~24mg/kg) x 1 given * Maintenance dose: 1250mg (~11mg/kg) IV Q 12 hrs (pending result of repeat SCr today) * Goal trough level for meningitis : 15 to 20 mcg/mL * Will check trough level w/ 4th dose if therapy to continue Meropenem * 2000mg IV Q 8 hrs indicated for meningitis and eCrCl > 50cc/min Pharmacy will continue to follow and will adjust dose/frequency as necessary. Thank you.
[2020-08-17 11:29] LABS: Appearance CSF Clear; CSF Count Tube # 3; CSF Xanthrochromic No xanthochromia; Color CSF Colorless; Red Blood Cell CSF (A) 0 /uL (0-); Red Blood Cell CSF (B) 0 /uL (0-); White Blood Cell CSF (A) 0 /uL (0-5); White Blood Cell CSF (B) 0 /uL (0-5)
[2020-08-17 11:44] LABS: Lactate CSF 2.6 mmol/L (0.6-2.2); Total Protein CSF 61.1 mg/dl (15-45)
--- NOTE | 2020-08-17 12:15 | Electrocardiogram Report ---
Test Reason : Blood Pressure : / mmHG Vent. Rate : 132 BPM Atrial Rate : 132 BPM P-R Int : 124 ms QRS Dur : 078 ms QT Int : 306 ms P-R-T Axes : 032 064 032 degrees QTc Int : 453 ms Sinus tachycardia with Premature atrial complexes Otherwise normal ECG When compared with ECG of 12-MAR-2019 20:43, Premature atrial complexes are now Present Confirmed by Charles Dunbar ([id number]) on 08/17/2020 12:15:02 PM Referred By: REFERRED SELF Confirmed By:Charles Dunbar
[2020-08-17 12:20] LABS: Troponin I 0.16 ng/ml (0-0.045)
--- NOTE | 2020-08-17 12:29 | Electrocardiogram Report ---
Test Reason : Blood Pressure : / mmHG Vent. Rate : 100 BPM Atrial Rate : 100 BPM P-R Int : 136 ms QRS Dur : 086 ms QT Int : 354 ms P-R-T Axes : 051 066 038 degrees QTc Int : 456 ms Normal sinus rhythm Normal ECG When compared with ECG of 16-AUG-2020 20:05, (unconfirmed) Premature atrial complexes are no longer Present Confirmed by Charles Dunbar ([id number]) on 08/17/2020 12:29:18 PM Referred By: REFERRED SELF Confirmed By:Charles Dunbar
--- NOTE | 2020-08-17 12:35 | Electrocardiogram Report ---
Test Reason : Blood Pressure : / mmHG Vent. Rate : 111 BPM Atrial Rate : 111 BPM P-R Int : 132 ms QRS Dur : 080 ms QT Int : 324 ms P-R-T Axes : 053 071 035 degrees QTc Int : 440 ms Sinus tachycardia with Premature atrial complexes Otherwise normal ECG When compared with ECG of 16-AUG-2020 23:14, (unconfirmed) Premature atrial complexes are now Present Confirmed by Charles Dunbar ([id number]) on 08/17/2020 12:34:38 PM Referred By: REFERRED SELF Confirmed By:Charles Dunbar
--- NOTE | 2020-08-17 13:47 | Pharmacy Report ---
Pharmacy Glycemic Short Note 2 - Date of Service August 17, 2020 - Glycemic Short BSG Results (Last 24 hours): 08/16/20 08/17/20 08/17/20 20:20 08:39 12:29 Glucose 243 H POC Glucose 353 H* 354 H* OUTPATIENT ANTIDIABETIC REGIMEN: * N/A * A1c 8.1% ASSESSMENT: * HD is admitted with sepsis, poss. meningitis, currently on meropenem, vancomycin and decadron 10 mg q6H * BSG elevated on admission 353 mg/dL this AM- patient was treated with 9 units of SQ insulin (included prandial coverage). Still elevated at lunch- parameters of novolog were tightened to weight based stress of 3 and received a full day lantus dose between weight based stress of 2 and 3. If bacterial meningitis r/o suspect dexamethasone to be discontinued. However, patient's A1c indicates patient has had elevated blood sugars prior to initiation of steroids, he is currently not treated with outpatient medications, uncertain of formal diagnosis outpatient. * Plan if decadron continues and BSG does not trend downward may need to initi ate an insulin infusion. Will get a BSG at 1430, to determine if another subq dose is needed. PLAN FOR INPATIENT GLYCEMIC CONTROL: * Hold outpatient oral diabetes medications * Basal insulin * Lantus 45 units SQ x1, further dosing to be determined * Bolus insulin * NovoLog per scale ACHS or Q6hrs while NPO * Goal Range: Low 110 mg/dL - High 140 mg/dL * Correction Factor: 15 mg/dL/unit * Nutritional / Prandial insulin per carb ratio of 1 unit per 5 grams CHO consumed PLAN FOR DISCHARGE: * tbd
[2020-08-17] MEDS ORDERED: INSULIN ASPART 100 UNITS/ML 3 ML PEN SC ONE ×2 (14:15→14:30)
[2020-08-17 14:45] LABS: Creatinine Clr Calc Pharmacy 88.8 ml/min; Est GFR (African American) 79.1; Est GFR (Non-African American) 68.2
[2020-08-17] MEDS: VANCOMYCIN HCL 1,250 MG in SODIUM CHLORIDE 0.9% 250 ML IV SCH (17:41)
--- NOTE | 2020-08-17 19:53 | Communication Note ---
Date of Service: August 17, 2020 Pt was seen and examined. Lying in bed with no distress He said that he feels slightly better He had LP done today to r/o meningitis Currently denies any palpitation, photophobia, blurry vision, headache General- No acute distress, negative Brudzinski and kernig sign Head- atraumatic Eyes- PERRL, EOMI, ENT- oropharynx clear Neck- supple, no JVD, no neck stiffness, Lungs- clear to auscultation Heart- no murmur Abdomen- normal bowel sounds, soft, nontender Extremities- no calf tenderness Neuro- alert, oriented x 3; PERRL, EOMI; no facial palsy; no dysarthria Skin- warm & dry A/P Sepsis Present on admission with fever, chills, flu like illness COVID 19 negative Procalcitonin elevated POC Lactic elevated, but repeat lactic normal LP done to evaluate for meningitis CSF showed elevated glucose, protein, lactate and no organism and WBC, CSF culture pending Doubt about bacterial meningitis, will d/c IV steroid Follow up on the rest of CSF marker Continue IV abx with Meropenem, Vanco and Ceftriaxone IV ID consult Follow up blood cx and CSF cx Will consider to repeat COVID 19 testing in the next 24 to 48 if pt does not improve Continue monitor closely Elevated troponin Possible related sepsis Trop on admission 0.063-->0.16-->0.10 EKG showed no acute ischemic changes ECHO showed no wall motion abnormality with EF 60-65 % Currently denies any chest pain Newly Dx Diabetes Most recent Hba1c 8.1 Diabetic education consult Continue insulin sliding scale Continue monitor BS DVT px on Lovenox
[2020-08-18] MEDS: INSULIN ASPART 100 UNITS/ML 3 ML PEN SC SCH ×6 (00:06→20:36)
[2020-08-18] MEDS: VANCOMYCIN HCL 1,250 MG in SODIUM CHLORIDE 0.9% 250 ML IV SCH ×2 (06:39→17:47)
[2020-08-18 07:42] LABS: Basophils # (auto) 0.01 K/uL (0-0.2); Basophils % (auto) 0.1 %; Hematocrit (blood only) 35.4 % (42-52); Hemoglobin 12.3 g/dL (14.0-18.0); Immature Granulocytes # (auto) 0.06 K/uL (0.00-0.02); Immature Granulocytes % (auto) 0.4 %; Lymphocytes # (auto) 2.19 K/uL (1.2-3.4); Lymphocytes % (auto) 15.3 %; Mean Corpuscular Hemoglobin 30.8 pg (25-34); Mean Corpuscular Hgb Conc 34.7 g/dL (32-36); Mean Corpuscular Volume 88.7 fL (80-100); Mean Platelet Volume 10.1 fL (7.4-10.4); Monocytes # (auto) 0.62 K/uL (0.11-0.59); Monocytes % (auto) 4.3 %; Neutrophils # (auto) 11.45 K/uL (1.4-6.5); Neutrophils % (auto) 79.9 %; Platelet Count 184 K/uL (130-400); RDW Coefficient of Variation 13.4 % (11.5-14.5); RDW Standard Deviation 43.7 fL (36.4-46.3); Red Blood Count 3.99 M/uL (4.7-6.1); White Blood Count 14.33 K/uL (4.8-10.8)
[2020-08-18] MEDS: CITALOPRAM 20 MG TAB PO SCH (08:02)
[2020-08-18] MEDS: LOSARTAN POTASSIUM 50 MG TAB PO SCH (08:02)
[2020-08-18] MEDS: ENOXAPARIN INJ 40 MG/0.4 ML SYR SQ SCH (08:02)
[2020-08-18] MEDS: MEROPENEM 2,000 MG in 0.9 % SODIUM CHLORIDE 58 ML IV SCH ×2 (08:03→17:05)
[2020-08-18 08:16] LABS: BUN Creatinine Ratio 18.1 (10-20); Calcium 8.1 mg/dl (8.5-10.1); Creatinine Clr Calc Pharmacy 121.9 ml/min; Est GFR (African American) 112.7; Est GFR (Non-African American) 97.2
[2020-08-18 08:25] LABS: Troponin I 0.148 ng/ml (0-0.045)
[2020-08-18] MEDS ORDERED: INSULIN GLARGINE SOLOSTAR 100 UNITS/ML 3 ML PEN SC SCH ×3 (09:00→21:00)
[2020-08-18 11:37] LABS: EBV Nuclear Ag Antibody <18.00 U/mL; Epstein Barr Virus Early Ag Ab <9.00 U/mL
--- NOTE | 2020-08-18 12:43 | Pharmacy Report ---
Glycemic Control Progress Note - Date of Service August 18, 2020 - Scope Glycemic Pharmacist consulted for glycemic control to write orders per [facility] inpatient glycemic control protocol. - Objective Accuchecks BSG(last 24 hours):: 08/17/20 08/17/20 08/17/20 14:11 16:46 20:31 Glucose POC Glucose 340 H* 257 H 235 H 08/18/20 08/18/20 08/18/20 00:00 04:08 07:13 Glucose 208 H POC Glucose 197 H 184 H 08/18/20 08/18/20 07:40 11:31 Glucose POC Glucose 217 H 207 H HbA1c:: Hemoglobin A1c 8.1 % (4.5-5.6) H 08/16/20 20:20 - Recent Pertinent Medications The patient is currently receiving: * Basal insulin: Lantus 45 units SQ x 1 * Correctional Insulin: Novolog Correction per scale ACHS Goal Range: Low 110 mg/dL - High 140 mg/dL Correction Factor: 15 mg/dL/unit * Prandial insulin: Per carb ratio of 1 unit per 5 grams CHO consumed - Outpatient Anti-Diabetic Meds N/A - Assessment & Plan ASSESSMENT: * See progress note from 08/17/2019 for more background info, in short: * Pt receiving SQ basal bolus insulin regimen for hyperglycemia secondary to baseline DM (newly diagnosed). Patient received two doses of dexamethasone 10 mg yesterday. * Patient is currently receiving an average of 126 units of insulin per day * 45 units of basal insulin * 81 units of prandial/correctional insulin * BSGs ranging 197 - 354 mg/dl over the past 24hrs * Changes needed to insulin regimen: * AM Fasting BSG = 217 mg/dl. This is above goal range for patient based on inpatient targets and co-morbidities. This is much improved compared to yesterday's fasting BSG of 353 mg/dL. Patient received an additional 7 units overnight so will give Lantus 28 units this morning then 20 units BID starting tonight (weight-based stress of 2). * Post-prandial BSGs began to trend down yesterday. Will continue weight- based stress of 3 for now. Steroids have ended so expect BSGs to further trend down. * Total daily dose is TBD. PLAN FOR INPATIENT GLYCEMIC CONTROL: * STARTING Lantus 28 units SQ x 1 then 20 units BID * Continuing correction factor of 15 mg/dl/unit * Continuing carb ratio of 1 unit per 5 grams CHO consumed * Continuing goal range of Low 110 mg/dL - High 140 mg/dL * Please note that the plan above was derived based on current level of insulin resistance and hospital stress. These recommendations are appropriate for inpatient admission only. Plan of care upon discharge will need to be reassessed to avoid potential outpatient hypo/hyperglycemia. Thank you.
[2020-08-18] MEDS ORDERED: VANCOMYCIN TROUGH ONE (17:30)
--- NOTE | 2020-08-18 17:42 | Hospitalist Progress Note ---
Date of Service August 18, 2020 Assessment & Plan (1) Sepsis: Met SIRS criteria on admission, fever 38.7, tachycardia, shortness of breath with tachypnea respiratory rate above 24 Had normal white count on admission, Elevated lactic acid Source of infection: Possible bacterial meningitis ? Secondary to sinusitis, otitis media History chronic sinusitis as per records Lumbar puncture done, Appreciate input from [facility] infectious disease, Recommends continue broad-spectrum antibiotic until culture reports are available Patient was treated with Bactrim for possible sinusitis, developed rash, no improvement in symptoms, but ID some of the symptoms could be secondary to drug reaction to Bactrim. Bactrim added to patient's drug allergy list. Patient has been afebrile, remains in room air Chest pain, troponin elevation secondary to tachycardia from sepsis Chest discomfort has resolved, No hypoxia Tachyarrhythmia noted on telemetry, patient also reports of feeling palpitation dyspnea on exertion and shortness of breath associated with that Does not have any angina symptoms, echocardiogram shows normal ejection fraction no wall motion abnormality. 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, patient reports of feeling palpitation SVT dizzy and lightheadedness, Has been experiencing dyspnea on exertion for last few days, symptom improved today somewhat Does not have any complaint of chest heaviness or chest tightness, No nausea vomiting or abdominal pain Review of Systems Review of Systems: All systems reviewed & are unremarkable except as noted in HPI & below Constitutional: + fatigue, + malaise and + weakness; no fever and no chills Respiratory: + cough, + dyspnea and + dyspnea on exertion; no sputum production and no wheezing Cardiovascular: + dyspnea, + dyspnea on exertion, + palpitations, + lightheadedness and + syncope; no chest pain, no chest pain with activity, no dyspnea at rest, no orthopnea and no edema Gastrointestinal: no abdominal pain, no nausea and no vomiting Physical Exam Constitutional: WD/WN, vitals as above no acute distress Eyes: PERRL, conjunctivae normal, anicteric sclerae ENMT: external ear and nose normal, oropharynx normal Neck: trachea midline, no thyromegaly Respiratory: normal respiratory effort and + cough Auscultation: + diminished lung sounds; no rales and no wheezes Cardiovascular: Rate/Rhythm: regular rhythm and + tachycardic Extremities: no edema Gastrointestinal (Abdomen): Percussion/Palpation: abdomen soft; abdomen nontender Musculoskeletal: no cyanosis or clubbing, extremities motor strength 5/5 Skin: no rashes, warm and dry Neurologic: PERRL, EOMI, accommodation nl, no face palsy, no dysarthria Generalized weakness Psychiatric: A+Ox3, euthymic affect Results & Data Results & Data ([facility]) Vital Signs (Past 12 Hours) Vital Signs Temp Pulse Resp BP BP Pulse Ox 08/18/20 15:46 36.7 C 93 H 126/69 95 08/18/20 11:42 36.6 C 96 H 18 114/64 97 08/18/20 07:25 36.3 C L 74 16 162/72 H 98
[2020-08-18] MEDS ORDERED: METOPROLOL TARTRATE 1 MG/ML VIAL IV PRN (18:41)
[2020-08-18] MEDS: METOPROLOL TARTRATE 25 MG TAB PO SCH ×2 (19:19→21:17)
[2020-08-19] MEDS: MEROPENEM 2,000 MG in 0.9 % SODIUM CHLORIDE 58 ML IV SCH ×4 (01:27→23:43)
[2020-08-19] MEDS ORDERED: VANCOMYCIN TROUGH ONE (05:30)
[2020-08-19 06:22] LABS: Basophils # (auto) 0.02 K/uL (0-0.2); Basophils % (auto) 0.1 %; Eosinophils # (auto) 0.01 K/uL (0-0.5); Eosinophils % (auto) 0.1 %; Hematocrit (blood only) 35.6 % (42-52); Hemoglobin 12.2 g/dL (14.0-18.0); Immature Granulocytes # (auto) 0.14 K/uL (0.00-0.02); Lymphocytes # (auto) 2.42 K/uL (1.2-3.4); Lymphocytes % (auto) 17.6 %; Mean Corpuscular Hemoglobin 30.8 pg (25-34); Mean Corpuscular Hgb Conc 34.3 g/dL (32-36); Mean Corpuscular Volume 89.9 fL (80-100); Monocytes # (auto) 1.06 K/uL (0.11-0.59); Monocytes % (auto) 7.7 %; Neutrophils # (auto) 10.12 K/uL (1.4-6.5); Neutrophils % (auto) 73.5 %; Platelet Count 214 K/uL (130-400); RDW Coefficient of Variation 13.5 % (11.5-14.5); RDW Standard Deviation 44.6 fL (36.4-46.3); Red Blood Count 3.96 M/uL (4.7-6.1); White Blood Count 13.77 K/uL (4.8-10.8)
[2020-08-19] MEDS: VANCOMYCIN HCL 1,250 MG in SODIUM CHLORIDE 0.9% 250 ML IV SCH ×3 (06:22→23:43)
[2020-08-19 07:00] LABS: Creatinine Clr Calc Pharmacy 113.1 ml/min; Est GFR (Non-African American) 88.9
[2020-08-19 07:14] LABS: Thyroid Stimulating Hormone 0.741 uIu/ml (0.300-4.500)
[2020-08-19] MEDS: CITALOPRAM 20 MG TAB PO SCH (08:00)
[2020-08-19] MEDS: INSULIN GLARGINE SOLOSTAR 100 UNITS/ML 3 ML PEN SC SCH ×2 (08:00→21:17)
[2020-08-19] MEDS: LOSARTAN POTASSIUM 50 MG TAB PO SCH (08:00)
[2020-08-19] MEDS: INSULIN ASPART 100 UNITS/ML 3 ML PEN SC SCH ×4 (08:01→21:17)
[2020-08-19] MEDS: METOPROLOL TARTRATE 25 MG TAB PO SCH (08:03)
--- NOTE | 2020-08-19 08:27 | Pharmacy Report ---
Pharmacy Abx Dose Short Note - Date of Service August 19, 2020 - Assessment & Plan Assessment 50 year old M receiving vancomycin/meropenem for treatment of empiric therapy Day # 3 of antimicrobial therapy. Plan Vancomycin * Trough level of 7.4 mcg/mL is subtherapeutic * Change to 1250 mg IV every 10 hours (start 2 hours early) * Goal trough level for empiric therapy : 15 to 20 mcg/mL * Will order additional trough if continued through 08/20/20 Pharmacy will continue to follow and will adjust dose/frequency as necessary. Thank you.
--- NOTE | 2020-08-19 11:35 | Cardiology Consultation ---
Date of Consultation August 19, 2020 Assessment & Plan (1) Palpitations: (2) RODRIGUEZ (dyspnea on exertion): (3) PSVT (paroxysmal supraventricular tachycardia): (4) Elevated troponin: (5) Sepsis: (6) Fever: Patient admitted with fever, sepsis and questionable meningitis. Also related history of palpitations and dyspnea on exertion in the days leading up to presentation. The symptoms correlated with him feeling ill. Was admitted to telemetry with no significant structural abnormalities on echocardiogram and brief salvos of paroxysmal supraventricular tachycardia on monitor. I do not believe this represents any primary cardiac pathophysiology rather, physiologic response to sepsis. No further cardiac testing or intervention is necessary at this time. Would recommend outpatient follow-up 1 to 2 weeks after discharge once he is feeling back to normal to see if any symptoms might recur. I discussed this with the patient and he is in agreement with the above plan History of Present Illness Reason for Consultation: Palpitations and dyspnea Requesting Physician: Dr. Laguna Attending Physician: Edna Coombs MD History of Present Illness Patient is currently in the isolation unit with concern of possible meningitis, interview was conducted by phone and review of medical records. Patient was admitted with complaints of fever and worsening symptoms of a sinus infection. Upon arrival he was found to be septic and concern for meningitis was raised. He was initiated on antibiotics and currently states he is feeling better than presentation. States is not quite back to normal yet but feeling much better than initially. He states that several days ago he started becoming ill he also noticed that his heart would start to race with any activity and he become winded easily. He states that the symptoms worsen as the rest of the symptoms worsen and denies any previous episodes prior to falling ill. Since initiation of antibiotics as an inpatient he has not had any further palpitations but brief salvos of PSVT have been detected on monitor. Allergies Allergy/AdvReac Type Severity Reaction Status Date / Time lisinopril Allergy Severe "nonstop" Unverified 08/16/20 21:23 coughing sulfamethoxazole Allergy Severe Rash Verified 08/18/20 18:04 [From Bactrim] trimethoprim [From Bactrim] Allergy Severe Rash Verified 08/18/20 18:04 Penicillins Allergy Intermediate hives Verified 08/16/20 21:16 Home Medications Medication Instructions Recorded Confirmed Type citalopram [Celexa] 20 mg PO QAM 03/12/19 08/16/20 History acetaminophen [Tylenol Extra 1,000 mg PO Q6H PRN 08/16/20 08/16/20 History Strength] ibuprofen 200 mg PO Q6H PRN 08/16/20 08/16/20 History losartan 50 mg PO QAM 08/16/20 08/16/20 History sulfamethoxazole-trimethoprim 1 tab PO Q12H 08/16/20 08/16/20 History [Bactrim DS] Patient History Medical History Hypertension Surgical History No significant past surgical history Family History Other No significant family history Social History Smoking Status: Never smoker Second Hand Exposure: No; Do You Dip or Chew Tobacco: Yes; Hx Alcohol Use: No Hx Substance Use: No Preferred Language: Portuguese Communication Ability: Effective Credit Rating Inspector Required: No Beliefs That Will Affect Care: None Current Living Situation: Family Other Information That Helps Us Care for You: No Feels Safe at Home: Yes Safety Concerns: Feels Safe At This Time Assistive Devices: None Review of Systems Review of Systems: All systems reviewed & are unremarkable except as noted in HPI & below Physical Exam Physical Exam: Per our phone conversation patient is awake, alert and oriented x3. No acute distress. Results & Data ([facility]) Vital Signs (Past 12 Hours) Vital Signs Temp Pulse Pulse Resp BP Pulse Ox 08/19/20 07:20 36.5 C 81 16 108/69 94 08/19/20 04:00 36.7 C 74 18 124/61 96 08/19/20 01:37 79 Laboratory Results Laboratory Results - last 24 hr 08/16/20 08/18/20 08/18/20 20:20 11:31 16:42 WBC RBC Hgb Hct MCV MCH MCHC RDW Std Deviation RDW Coeff of Tata Plt Count MPV Immature Gran % (Auto) Neut % (Auto) Lymph % (Auto) [place] % (Auto) Eos % (Auto) Baso % (Auto) Neut # (Auto) Lymph # (Auto) [place] # (Auto) Eos # (Auto) Baso # (Auto) Immature Gran # (Auto) Creatinine Est Cr Clr Drug Dosing Est GFR ( Amer) Est GFR (Non-Af Amer) POC Glucose 207 H 126 H TSH Vancomycin Trough EBV Capsid Ag IgG Ab 47.80 H EBV Capsid Ag IgM Ab <36.00 EBV EA Restrict+Diffuse <9.00 EBV Nuclear Antigen Ab <18.00 EBV Antibody Interp SEE NOTE 08/18/20 08/18/20 08/19/20 17:32 20:17 05:53 WBC 13.77 H RBC 3.96 L Hgb 12.2 L Hct 35.6 L MCV 89.9 MCH 30.8 MCHC 34.3 RDW Std Deviation 44.6 RDW Coeff of Tata 13.5 Plt Count 214 MPV 10.0 Immature Gran % (Auto) 1.0 Neut % (Auto) 73.5 Lymph % (Auto) 17.6 [place] % (Auto) 7.7 Eos % (Auto) 0.1 Baso % (Auto) 0.1 Neut # (Auto) 10.12 H Lymph # (Auto) 2.42 [place] # (Auto) 1.06 H Eos # (Auto) 0.01 Baso # (Auto) 0.02 Immature Gran # (Auto) 0.14 H Creatinine Est Cr Clr Drug Dosing Est GFR ( Amer) Est GFR (Non-Af Amer) POC Glucose 161 H TSH Vancomycin Trough 7.4 EBV Capsid Ag IgG Ab EBV Capsid Ag IgM Ab EBV EA Restrict+Diffuse EBV Nuclear Antigen Ab EBV Antibody Interp 08/19/20 08/19/20 08/19/20 05:53 07:33 11:24 WBC RBC Hgb Hct MCV MCH MCHC RDW Std Deviation RDW Coeff of Tata Plt Count MPV Immature Gran % (Auto) Neut % (Auto) Lymph % (Auto) [place] % (Auto) Eos % (Auto) Baso % (Auto) Neut # (Auto) Lymph # (Auto) [place] # (Auto) Eos # (Auto) Baso # (Auto) Immature Gran # (Auto) Creatinine 0.98 Est Cr Clr Drug Dosing 113.1 Est GFR ( Amer) 103.0 Est GFR (Non-Af Amer) 88.9 POC Glucose 122 H 126 H TSH 0.741 Vancomycin Trough EBV Capsid Ag IgG Ab EBV Capsid Ag IgM Ab EBV EA Restrict+Diffuse EBV Nuclear Antigen Ab EBV Antibody Interp Diagnostic Findings CBC 08/19/20 Range/Units 05:53 WBC 13.77 H (4.8-10.8) K/uL RBC 3.96 L (4.7-6.1) M/uL Hgb 12.2 L (14.0-18.0) g/dL Hct 35.6 L (42-52) % Plt Count 214 (130-400) K/uL Neut # (Auto) 10.12 H (1.4-6.5) K/uL Lymph # (Auto) 2.42 (1.2-3.4) K/uL [place] # (Auto) 1.06 H (0.11-0.59) K/uL Eos # (Auto) 0.01 (0-0.5) K/uL Baso # (Auto) 0.02 (0-0.2) K/uL Comprehensive Metabolic Panel 08/19/20 Range/Units 05:53 Creatinine 0.98 (0.6-1.4) mg/dl Intake and Output 08/18/20 08/19/20 08/19/20 22:59 06:59 14:59 Intake Total 1020 / 3100.000 450 / 3100.000 375 / 375 Balance 1020 / 3100.000 450 / 3100.000 375 / 375 Intake: IV 375 / 850.000 100 / 850.000 375 / 375 Merrem 2,000 mg In Sodium 100 / 300.000 100 / 300.000 100 / 100 Chloride 58 ml @ 200 mls/hr IV Q8H [facility] Rx#:[id number] Vancomycin HCl 1,250 mg In Nss 275 / 550 275 / 275 250 ml @ 200 mls/hr IV Q12H [facility] Rx#:[id number] Oral 645 / 2250 350 / 2250 Other: # Unmeasured Voids 3 Weight 118.1 kg Weight Measurement Method Standing Scale Medications Administered Current Inpatient Medications Acetaminophen (Acetaminophen 325 Mg Tab) 650 mg PO Q4H PRN PRN Reason: Pain or Fever Stop: 09/16/20 08:07 Citalopram Hydrobromide (Citalopram 20 Mg Tab) [facility] Stop: 09/16/20 08:59 Last Admin: 08/19/20 08:00 Dose: 20 mg Documented by: Dextrose (Dextrose 50% 50 Ml Syringe) 25 - 50 ml IV UD PRN; Protocol PRN Reason: Hypoglycemia Protocol Stop: 09/16/20 08:07 Glucagon (Glucagon For Inj 1 Mg Vial) 1 mg SQ UD PRN; Protocol PRN Reason: Hypoglycemia Protocol Stop: 09/16/20 08:07 Glucose (Glucose 10 Tabs/Tube) 4 - 8 tabs PO UD PRN; Protocol PRN Reason: Hypoglycemia Protocol Stop: 09/16/20 08:07 Glucose (Glucose 40% Gel 15 Gm Tube) 15 - 30 gm PO UD PRN; Protocol PRN Reason: Hypoglycemia Protocol Stop: 09/16/20 08:07 Meropenem 2,000 mg/ Sodium (Chloride) 100 mls @ 200 mls/hr IV Q8H [facility]; Protocol Stop: 08/27/20 08:59 Last Infusion: 08/19/20 08:39 Dose: Infused Documented by: Vancomycin HCl 1,250 mg/ (Sodium Chloride) 275 mls @ 200 mls/hr IV Q10H [facility] Stop: 08/29/20 13:59 Ibuprofen (Ibuprofen 200 Mg Tab) 200 mg PO Q6H PRN PRN Reason: Mild Pain Stop: 09/16/20 08:07 Insulin Aspart (Insulin Aspart 100 Units/Ml 3 Ml Pen) 0 units SC ACHS [facility] Stop: 09/16/20 08:29 Last Admin: 08/19/20 08:01 Dose: 300 units Documented by: Insulin Glargine (Insulin Glargine Solostar 100 Units/Ml 3 Ml Pen) 0 units SC BID [facility]; Protocol Stop: 09/18/20 08:59 Last Admin: 08/19/20 08:00 Dose: 15 units Documented by: Ketorolac Tromethamine (Ketorolac Tromethamine 15 Mg/Ml Vial) 15 mg IV Q6H PRN PRN Reason: Pain Stop: 08/22/20 08:07 Losartan Potassium (Losartan Potassium 50 Mg Tab) 50 mg PO QAM [facility] Stop: 09/16/20 08:59 Last Admin: 08/19/20 08:00 Dose: 50 mg Documented by: Metoprolol Tartrate (Metoprolol Tartrate 25 Mg Tab) 12.5 mg PO BID [facility] Stop: 09/17/20 18:44 Last Admin: 08/19/20 08:03 Dose: 12.5 mg Documented by: Metoprolol Tartrate (Metoprolol Tartrate 1 Mg/Ml Vial) 5 mg IV Q6 PRN PRN Reason: HR> 100 Stop: 09/18/20 00:00 Miscellaneous (Carbohydrates For Hypoglycemia ) 15 - 30 gm PO UD PRN PRN Reason: Hypoglycemia Protocol Stop: 09/16/20 08:07 Miscellaneous Information (Vancomycin Consult Active) 1 ea N/A UD PRN PRN Reason: Consult Stop: 09/16/20 02:40 Miscellaneous Information (Pharmacy Glycemic Mgmt Consult) 1 ea N/A UD PRN PRN Reason: Consult Stop: 09/16/20 09:33
--- NOTE | 2020-08-19 11:47 | Pharmacy Report ---
Glycemic Control Progress Note - Date of Service August 19, 2020 - Scope Glycemic Pharmacist consulted for glycemic control to write orders per [facility] inpatient glycemic control protocol. - Objective Accuchecks BSG(last 24 hours):: 08/18/20 08/18/20 08/19/20 16:42 20:17 07:33 POC Glucose 126 H 161 H 122 H 08/19/20 11:24 POC Glucose 126 H HbA1c:: Hemoglobin A1c 8.1 % (4.5-5.6) H 08/16/20 20:20 - Recent Pertinent Medications The patient is currently receiving: * Basal insulin: Lantus 28 units in the morning and 20 units in the evening * Correctional Insulin: Novolog Correction per scale ACHS Goal Range: Low 110 mg/dL - High 140 mg/dL Correction Factor: 15 mg/dL/unit * Prandial insulin: Per carb ratio of 1 unit per 5 grams CHO consumed - Outpatient Anti-Diabetic Meds N/A - Assessment & Plan ASSESSMENT: * See progress note from 08/17/2020 for more background info, in short: * Pt receiving SQ basal bolus insulin regimen for hyperglycemia secondary to baseline DM. Patient remains on vancomycin and meropenem for empiric indication. * Patient is currently receiving an average of 84 units of insulin per day * 48 units of basal insulin * 36 units of prandial/correctional insulin * BSGs ranging 126 - 217 mg/dl over the past 24hrs * Changes needed to insulin regimen: * AM Fasting BSG = 122 mg/dl. This is in goal range for patient based on inpatient targets and co-morbidities. This is drastically less than fast BSG of 217 mg/dL yesterday. Will continue with weight-based dosing of 20 units BID (15 units if BSG less than 140 mg/dL). This represents a 30% (if patient receives 35 units) - 40% reduction (if patient receives 30 units). * Post-prandial BSGs were elevated yesterday. Today's BSGs are slightly lower. Will loosen closer to weight-based stress of 2 Novolog. * Total daily dose = ~60-80 units. Reduced insulin doses. PLAN FOR INPATIENT GLYCEMIC CONTROL: * Continuing Lantus 20 units SQ BID (15 units if BSG < 140 mg/dL) * LOOSENING correction factor to 20 mg/dl/unit * LOOSENING carb ratio to 1 unit per 6 grams CHO consumed * Continuing goal range of Low 110 mg/dL - High 140 mg/dL RECOMMENDATIONS FOR DISCHARGE: * Metformin + additional agent listed below. (B12 supplementation may be necessary with fci metformin) * Typically the XR formulation of metformin is better tolerated than the immediate release formulation. Continue to titrate metformin dosing upwards as recommended. Dosage increases should be made in increments of 500 mg weekly, up to 2,000 mg/day PO, given in divided doses. Doses above 2000 mg/day may be better tolerated if divided and given 3 times per day with meals. Max: 2,550 mg/day PO, in divided doses * Patient's HbA1C is 8.1% with goal HbA1C of <7% Thank you.
--- NOTE | 2020-08-19 20:03 | Hospitalist Progress Note ---
Date of Service August 19, 2020 Assessment & Plan (1) Sepsis: Met SIRS criteria on admission, fever 38.7, tachycardia, shortness of breath with tachypnea respiratory rate above 24 Had normal white count on admission, Elevated lactic acid Source of infection: Possible bacterial meningitis ? Secondary to sinusitis, otitis media History chronic sinusitis as per records clinically improved , has been afebrile with Lumbar puncture done, Appreciate input from [facility] infectious disease, Recommends continue broad-spectrum antibiotic till 08/20/20 follow culture reports Patient was treated with Bactrim for possible sinusitis, developed rash, no improvement in symptoms, but ID some of the symptoms could be secondary to drug reaction to Bactrim. Bactrim added to patient's drug allergy list. Patient has been afebrile, remains in room air Chest pain, troponin elevation secondary to tachycardia from sepsis Chest discomfort has resolved, No hypoxia Tachyarrhythmia noted on telemetry, patient also reports of feeling palpitation dyspnea on exertion and shortness of breath associated with that Does not have any angina symptoms, echocardiogram shows normal ejection fraction no wall motion abnormality. Started on low-dose Lopressor, cardiology consult appreciated tachycardia possible due to acute illness no further cardiac work up needed out pt follow up in cardiology clinic if symptoms recurred CODE STATUS: Full code DVT prophylaxis: DC subcu Lovenox this patient got a recent lumbar puncture scd and teds, patient is encouraged to ambulate Disposition expected to be discharged home when medically stable Admission and Anticipated Discharge Date Admission Date: August 17, 2020 Subjective Follow-up visit for fever chills cough/shortness tachycardia noted breath: Patient seen at bedside, reports he feels much better since admission, has been afebrile, Still feels frequently weak, wiped out Nonproductive cough 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, patient reports of feeling palpitation SVT dizzy and lightheadedness, Has been experiencing dyspnea on exertion for last few days, symptom improved today somewhat Does not have any complaint of chest heaviness or chest tightness, No nausea vomiting or abdominal pain Review of Systems Review of Systems: All systems reviewed & are unremarkable except as noted in HPI & below As per HPI, all 10 systems reviewed, all other ROS negative Constitutional: + fatigue, + malaise and + weakness; no fever and no chills Respiratory: + cough Physical Exam Constitutional: WD/WN, vitals as above no acute distress Eyes: PERRL, conjunctivae normal, anicteric sclerae ENMT: external ear and nose normal, oropharynx normal Neck: trachea midline, no thyromegaly Respiratory: normal respiratory effort and + cough Auscultation: + diminished lung sounds; no rales and no wheezes Cardiovascular: Rate/Rhythm: regular rhythm and + tachycardic Extremities: no edema Gastrointestinal (Abdomen): Percussion/Palpation: abdomen soft; abdomen nontender Musculoskeletal: no cyanosis or clubbing, extremities motor strength 5/5 Skin: no rashes, warm and dry Neurologic: PERRL, EOMI, accommodation nl, no face palsy, no dysarthria Psychiatric: A+Ox3, euthymic affect Results & Data Results & Data ([facility]) Vital Signs (Past 12 Hours) Vital Signs Temp Pulse Pulse Resp BP Pulse Ox 08/19/20 16:00 83 08/19/20 15:27 36.7 C 82 18 144/72 H 96 08/19/20 11:19 36.7 C 77 18 106/60 96
[2020-08-20] MEDS ORDERED: METOPROLOL TARTRATE 1 MG/ML VIAL IV STA ×2 (01:38→06:38)
[2020-08-20 02:31] LABS: Basophils # (auto) 0.02 K/uL (0-0.2); Basophils % (auto) 0.2 %; Eosinophils # (auto) 0.18 K/uL (0-0.5); Eosinophils % (auto) 1.6 %; Hemoglobin 13.1 g/dL (14.0-18.0); Immature Granulocytes # (auto) 0.27 K/uL (0.00-0.02); Immature Granulocytes % (auto) 2.3 %; Lymphocytes # (auto) 3.83 K/uL (1.2-3.4); Mean Corpuscular Hemoglobin 31.3 pg (25-34); Mean Corpuscular Hgb Conc 35.4 g/dL (32-36); Mean Corpuscular Volume 88.5 fL (80-100); Mean Platelet Volume 9.4 fL (7.4-10.4); Monocytes % (auto) 10.4 %; Neutrophils # (auto) 6.09 K/uL (1.4-6.5); Neutrophils % (auto) 52.5 %; Platelet Count 228 K/uL (130-400); RDW Coefficient of Variation 13.5 % (11.5-14.5); RDW Standard Deviation 43.9 fL (36.4-46.3); Red Blood Count 4.18 M/uL (4.7-6.1); White Blood Count 11.59 K/uL (4.8-10.8)
[2020-08-20 02:47] LABS: Creatinine Clr Calc Pharmacy 120.5 ml/min; Est GFR (African American) 111.2
[2020-08-20 02:56] LABS: Troponin I 0.056 ng/ml (0-0.045)
--- NOTE | 2020-08-20 06:07 | Electrocardiogram Report ---
Test Reason : Blood Pressure : / mmHG Vent. Rate : 102 BPM Atrial Rate : 102 BPM P-R Int : 134 ms QRS Dur : 084 ms QT Int : 372 ms P-R-T Axes : 053 056 036 degrees QTc Int : 484 ms Sinus tachycardia with frequent Premature ventricular complexes Premature atrial complexes Otherwise normal ECG When compared with ECG of 17-AUG-2020 04:43, Premature ventricular complexes are now Present Confirmed by Sadiq Morris ([id number]) on 08/20/2020 6:07:03 AM Referred By: REFERRED SELF Confirmed By:Sadiq Morris
[2020-08-20] MEDS: INSULIN ASPART 100 UNITS/ML 3 ML PEN SC SCH ×4 (08:31→20:38)
[2020-08-20] MEDS: MEROPENEM 2,000 MG in 0.9 % SODIUM CHLORIDE 58 ML IV SCH (08:31)
[2020-08-20] MEDS: INSULIN GLARGINE SOLOSTAR 100 UNITS/ML 3 ML PEN SC SCH ×2 (08:31→20:31)
[2020-08-20] MEDS: CITALOPRAM 20 MG TAB PO SCH (08:32)
[2020-08-20] MEDS: LOSARTAN POTASSIUM 50 MG TAB PO SCH (08:32)
--- NOTE | 2020-08-20 08:35 | Communication Note ---
Date of Service: August 20, 2020 Spinal fluid culture negative growth, no growth on blood culture, patient has been afebrile, with stable vitals., No evidence of meningitis DC IV meropenem, IV vancomycin Discontinue airborne precautions/isolation. Edna Coombs MD
[2020-08-20 08:38] LABS: Albumin Level 2.7 gm/dl (3.4-5.0); BUN Creatinine Ratio 17.7 (10-20); Calcium 8.3 mg/dl (8.5-10.1); Creatinine Clr Calc Pharmacy 114.6 ml/min; Est GFR (African American) 105.6; Est GFR (Non-African American) 91.2; Magnesium 2.4 mg/dl (1.8-2.4); Potassium 3.7 mmol/L (3.5-5.1)
[2020-08-20 08:43] LABS: Albumin Globulin Ratio 0.7 (0.9-2); Globulin 3.8 gm/dl (2.5-4.0); Total Protein 6.5 gm/dl (6.4-8.2); Troponin I 0.036 ng/ml (0-0.045)
[2020-08-20 09:47] LABS: CMV DNA Qnt Real Time PCR <200 IU/mL (<200); CMV DNA Quant PCR <2.30 log IU/mL (<2.30); HSV Type 1 DNA Not Detected (Not Detected); HSV Type 1&2 DNA Source CSF; HSV Type 2 DNA Not Detected (Not Detected)
--- NOTE | 2020-08-20 12:06 | Electrocardiogram Report ---
Test Reason : Blood Pressure : / mmHG Vent. Rate : 136 BPM Atrial Rate : 170 BPM P-R Int : 000 ms QRS Dur : 078 ms QT Int : 304 ms P-R-T Axes : 055 058 027 degrees QTc Int : 457 ms Sinus tachycardia with a possible paroxysmal atrial tachycardia Nonspecific ST and T wave abnormality Abnormal ECG When compared with ECG of 18-AUG-2020 18:41, Significant changes have occurred Confirmed by Charles Dunbar ([id number]) on 08/20/2020 12:06:28 PM Referred By: REFERRED SELF Confirmed By:Charles Dunbar
--- NOTE | 2020-08-20 12:09 | Electrocardiogram Report ---
Test Reason : Blood Pressure : / mmHG Vent. Rate : 155 BPM Atrial Rate : 155 BPM P-R Int : 000 ms QRS Dur : 078 ms QT Int : 302 ms P-R-T Axes : 000 060 012 degrees QTc Int : 485 ms Sinus beat with possible paroxysmal atrial tachycardia Abnormal ECG When compared with ECG of 20-AUG-2020 01:45, (unconfirmed) No significant change Confirmed by Charles Dunbar ([id number]) on 08/20/2020 12:08:40 PM Referred By: REFERRED SELF Confirmed By:Charles Dunbar
--- NOTE | 2020-08-20 12:31 | Pharmacy Report ---
Glycemic Control Progress Note - Date of Service August 20, 2020 - Scope Glycemic Pharmacist consulted for glycemic control to write orders per [facility] inpatient glycemic control protocol. - Objective Accuchecks BSG(last 24 hours):: 08/19/20 08/19/20 08/20/20 16:37 20:01 07:44 Glucose POC Glucose 95 110 H 89 08/20/20 08/20/20 07:58 11:33 Glucose 82 POC Glucose 122 H HbA1c:: Hemoglobin A1c 8.1 % (4.5-5.6) H 08/16/20 20:20 - Recent Pertinent Medications The patient is currently receiving: * Basal insulin: Lantus 15 units every 12 hours * Correctional Insulin: Novolog Correction per scale ACHS Goal Range: Low 110 mg/dL - High 140 mg/dL Correction Factor: 20 mg/dL/unit * Prandial insulin: Per carb ratio of 1 unit per 6 grams CHO consumed - Outpatient Anti-Diabetic Meds n/a - Assessment & Plan ASSESSMENT: * See progress note from 08/17/2020 for more background info, in short: * Pt receiving SQ basal bolus insulin regimen for hyperglycemia secondary to baseline DM (newly diagnosed). Antibiotics discontinued today. * Patient is currently receiving an average of 58 units of insulin per day * 30 units of basal insulin * 28 units of prandial/correctional insulin * BSGs ranging 95 - 126 mg/dl over the past 24hrs * Changes needed to insulin regimen: * AM Fasting BSG = 89 mg/dl. This is slightly below goal range for patient based on inpatient targets and co-morbidities. Therefore Basal insulin will be decreased further to Lantus 10 units (15 units if BSG > 140 mg/dL). This represents a 15 % (if patient receives 25 units today) - 35% (if patient receives 20 units today) reduction. * Post-prandial BSGs are in range therefore no changes needed to CF/CR. * Total daily dose = ~50 units. Reduced insulin as appropriate. PLAN FOR INPATIENT GLYCEMIC CONTROL: * DECREASING Lantus to 10 units SQ BID (Lantus 15 units if BSG > 140 mg/dL) * Continuing correction factor of 20 mg/dl/unit * Continuing carb ratio of 1 unit per 6 grams CHO consumed * Continuing goal range of Low 110 mg/dL - High 140 mg/dL RECOMMENDATIONS FOR DISCHARGE: * Recommend reduction in consumption of sweetened drinks. * Metformin + additional agent listed below. (B12 supplementation may be necessary with predatory animal exterminator metformin) * Typically the XR formulation of metformin is better tolerated than the immediate release formulation. Continue to titrate metformin dosing upwards as recommended. Dosage increases should be made in increments of 500 mg weekly, up to 2,000 mg/day PO, given in divided doses. Doses above 2000 mg/day may be better tolerated if divided and given 3 times per day with meals. Max: 2,550 mg/day PO, in divided doses * Patient's HbA1C is 8.1% with goal HbA1C of <7% * Please note that the plan above was derived based on current level of insulin resistance and hospital stress. These recommendations are appropriate for inpatient admission only. Plan of care upon discharge will need to be reassessed to avoid potential outpatient hypo/hyperglycemia. Thank you.
--- NOTE | 2020-08-20 19:44 | Hospitalist Progress Note ---
Date of Service August 20, 2020 Assessment & Plan (1) Sepsis: Met SIRS criteria on admission, fever 38.7, tachycardia, shortness of breath with tachypnea respiratory rate above 24 Had normal white count on admission, Elevated lactic acid Source of infection: Possible bacterial meningitis ? Secondary to sinusitis, otitis media History chronic sinusitis as per records clinically improved , has been afebrile with Lumbar puncture done, Appreciate input from [facility] infectious disease, spinal fluid culture -no growth , blood cultues no growth abx dced Patient was treated with Bactrim for possible sinusitis, developed rash, no improvement in symptoms, but ID some of the symptoms could be secondary to drug reaction to Bactrim. Bactrim added to patient's drug allergy list. Patient has been afebrile, remains in room air Chest pain, troponin elevation secondary to tachycardia from sepsis no further episode , No hypoxia Tachyarrhythmia noted on telemetry, patient also reports of feeling palpitation dyspnea on exertion and shortness of breath associated with that Does not have any angina symptoms, echocardiogram shows normal ejection fraction no wall motion abnormality. cardiology consult appreciated tachycardia possible due to acute illness ordered gentle IV hydration no further cardiac work up needed out pt follow up in cardiology clinic if symptoms recurred CODE STATUS: Full code DVT prophylaxis: DC subcu Lovenox this patient got a recent lumbar puncture scd and teds, patient is encouraged to ambulate Disposition :expected to be discharged home in next 1-2 days Admission and Anticipated Discharge Date Admission Date: August 17, 2020 Subjective Follow-up visit for fever chills cough/shortness tachycardia noted breath: feels better episodes of sinus tachycardia with activity noted pt reports of feeling dizzy when standing up no fever or chills no cough or chest pain Physical Exam Constitutional: WD/WN, vitals as above no acute distress Eyes: PERRL, conjunctivae normal, anicteric sclerae ENMT: external ear and nose normal, oropharynx normal Neck: trachea midline, no thyromegaly Respiratory: normal respiratory effort and + cough Auscultation: + diminished lung sounds; no rales and no wheezes Cardiovascular: Rate/Rhythm: regular rhythm and + tachycardic Extremities: no edema Gastrointestinal (Abdomen): Percussion/Palpation: abdomen soft; abdomen nontender Musculoskeletal: no cyanosis or clubbing, extremities motor strength 5/5 Skin: no rashes, warm and dry Neurologic: PERRL, EOMI, accommodation nl, no face palsy, no dysarthria Psychiatric: A+Ox3, euthymic affect Results & Data Results & Data ([facility]) Vital Signs (Past 12 Hours) Vital Signs Temp Pulse Pulse Resp BP BP Pulse Ox 08/20/20 19:19 36.8 C 85 16 130/80 93 08/20/20 17:20 37.0 C 91 H 20 122/80 95 08/20/20 16:00 82 08/20/20 15:12 37.1 C 71 20 127/62 90 08/20/20 11:10 36.6 C 88 20 120/73 96
[2020-08-20] MEDS ORDERED: LACTATED RINGER'S 1,000 ML IV SCH (19:45)
[2020-08-21] MEDS: INSULIN GLARGINE SOLOSTAR 100 UNITS/ML 3 ML PEN SC SCH (08:24)
[2020-08-21] MEDS: CITALOPRAM 20 MG TAB PO SCH (08:25)
[2020-08-21] MEDS: LOSARTAN POTASSIUM 50 MG TAB PO SCH (08:25)
[2020-08-21] MEDS: INSULIN ASPART 100 UNITS/ML 3 ML PEN SC SCH ×2 (08:25→12:35)
[2020-08-21 09:59] LABS: Est GFR (Non-African American) 83.7
[2020-08-21 12:32] LABS: EBV DNA Quant PCR <200 copies/mL (<200); EBV DNA Quant Source CSF; Lyme IgG Band Pattern CSF DNR; Lyme IgG CSF NO BANDS DETECTED; Lyme IgM Band Pattern CSF DNR; Lyme IgM CSF NO BANDS DETECTED; VDRL Qualitative CSF Nonreactive (Nonreactive)
--- NOTE | 2020-08-21 15:16 | Discharge Summary ---
Date of Service August 21, 2020 Admission HPI Per Admitting Provider History obtained from patient and records. Medical history significant for hypertension, chronic sinusitis as per records, mood disorder, vertebral artery dissection status post Coumadin. 1 week history of sinus congestion with drainage cough productive of junky sputum, achy headache symptoms with yellow bilateral ear discharge right greater than the left. Fever and chills noted at home. No known recent COVID-19 contacts. Nonpleuritic chest tightness with some shortness of breath the last 2 days. Some neck pain on flexion. 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 Principal Diagnosis Sepsis: Resolved Supraventricular tachycardia : Secondary to dehydration infection resolved Discharge Exam Constitutional WD/WN, vitals as above no acute distress Eyes PERRL, conjunctivae normal, anicteric sclerae ENMT external ear and nose normal, oropharynx normal Neck trachea midline, no thyromegaly Respiratory normal respiratory effort and + cough Auscultation: + diminished lung sounds; no rales and no wheezes Cardiovascular Rate/Rhythm: regular rhythm and + tachycardic Extremities: no edema Gastrointestinal (Abdomen) Percussion/Palpation: abdomen soft; abdomen nontender Musculoskeletal no cyanosis or clubbing, extremities motor strength 5/5 Skin no rashes, warm and dry Neurologic PERRL, EOMI, accommodation nl, no face palsy, no dysarthria Psychiatric A+Ox3, euthymic affect Discharge Data Allergies Allergy/AdvReac Type Severity Reaction Status Date / Time lisinopril Allergy Severe "nonstop" Unverified 08/16/20 21:23 coughing sulfamethoxazole Allergy Severe Rash Verified 08/18/20 18:04 [From Bactrim] trimethoprim [From Bactrim] Allergy Severe Rash Verified 08/18/20 18:04 Penicillins Allergy Intermediate hives Verified 08/16/20 21:16 Consultations 08/16/20 23:35 ED Decision to Admit Stat 08/17/20 10:55 Consult Infectious Diseases Routine 08/18/20 18:43 Consult Cardiology Routine Ordered Studies 08/16/20 21:45 CT angio chest PE protocol Urgent 08/17/20 01:04 CT angio neck with con Urgent CT head/brain wo con Urgent 08/17/20 08:00 FL lumbar puncture diagnostic Routine Diabetes Follow up Diabetes Follow-up Needed for Newly Diagnosed Diabetes Hospital Course (1) Sepsis: resolved , possible viral infection , no bacterial source of infection found clinically recovered no fever or chills no cough or SOB , on admission met SIRS criteria on admission, fever 38.7, tachycardia, shortness of breath with tachypnea respiratory rate above 24 Had normal white count on admission, Elevated lactic acid no evidence of bacterial meningitis : Lumbar puncture done, Appreciate input from [facility] infectious disease, spinal fluid culture -no growth , blood cultures no growth abx dced in clinic : Patient was treated with Bactrim for possible sinusitis, developed rash, no improvement in symptoms, but ID some of the symptoms could be secondary to drug reaction to Bactrim. Bactrim added to patient's drug allergy list. Patient has been afebrile, remains in room air Chest pain, troponin elevation secondary to tachycardia from sepsis resolved no further episode , No hypoxia Tachyarrhythmia noted on telemetry, patient also reports of feeling palpitation dyspnea on exertion and shortness of breath associated with that Does not have any angina symptoms, echocardiogram shows normal ejection fraction no wall motion abnormality. symptoms resolved after IV fluids tele reviewed , no SVT noted , pt reports resolution of dizzy spell and weakness no palpitation ,no chest pain stable to be discharged home today CODE STATUS: Full code DVT prophylaxis: DC subcu Lovenox this patient got a recent lumbar puncture scd and teds, patient is encouraged to ambulate Disposition : discharged to home today Total Time Total Time Spent Total Time Spent (In Minutes): 35 mins Total Time Includes: Examination of the Patient, Discharge Planning and Medication Reconciliation Discharge Plan Discharge Items Patient Disposition: Home - Self-Care Reason For Visit: SEPSIS,POSS MENINGITIS Discharge Diagnosis: Sepsis: Resolved Supraventricular tachycardia : Secondary to dehydration infection resolved Activity: Resume your previous activity Non-emergency contact: Primary Care Provider Call non-emergency contact if: you have any medication questions Follow-up/Referrals: Tu Morrissey MD [Primary Care Provider] - (Hospital follow-up in 1 week office will call with appointment) Diet: Regular Addtl Attending Provider Instructions: Follow-up with family physician in a week, office will call with appointment Do not take Bactrim, added to your allergy list secondary to severe side effects of rash/fever Please update your pharmacy regarding your drug allergy Pending Studies at Discharge: No Stand-Alone Forms: My [facility], Smoking Cessation Medications and DC Order Prescriptions: Continued citalopram [Celexa] 20 mg Tablet 20 mg PO QAM RF: 0 losartan 50 mg tablet 50 mg PO QAM RF: 0 acetaminophen [Tylenol Extra Strength] 500 mg Tablet 1,000 mg PO Q6H PRN (Reason: fever/pain) RF: 0 ibuprofen 200 mg Tablet 200 mg PO Q6H PRN (Reason: fever/pain) RF: 0 Discontinued sulfamethoxazole-trimethoprim [Bactrim DS] 800-160 mg Tablet 1 tab PO Q12H RF: 0 Discharge Orders: Discharge Order (Routine); Ordered 08/21/20 Ordered By: Edna Coombs Admission Data Admit Date/Time: 08/17/20 02:53 Attending Provider: Edna Coombs Admit Provider: Nader Hernadez Primary Care Provider: Tu Morrissey Other Providers: Joel Edwards ; Nader Hernadez ; Sachin Kwan ; Katlyn Saleh ; Herson Dunbar I. ; Felix Soriano II ; Alissa Shah ; Ruddy Song ; Rodney Meneses ; Jay Jay Cerna ; Maykel Montes ; Janusz Sutton ; Hoang Glover ; Ruddy Williamson ; Leeann Solomon ; Margret Salomon ; Payam Emmanuel Other Interventions: Discharge Summary Assessment (RN) Last Done: 08/21/20 13:48
== END 2020-08-21 15:50 | disposition home or self-care (01) | DRG 872 ==
LOC: ED 19:41 → 2W 08-17 02:53 → SUATTDRO 08-17 02:53 → 2W 08-17 07:55